=== PATIENT | male | born 1985 | race African-American/Black ===

== ENCOUNTER 2016-09-21 20:03 | Inpatient (IN) | payer OTHER, MEDICAID ==
[~2016-09-21] VITALS: Ht 167.6 cm; Wt 93.0 kg
[~2016-09-21 20:03] MED LIST: PALI234D IM; TRIH2TAB3 PO
[2016-09-21] MEDS ORDERED: TRIHEXYPHENIDYL HCL 2 MG TABLET PO SCH (20:48)
[2016-09-21] MEDS ORDERED: INFLUENZA VIRUS VACCINE QVS 2016-17 (3YR+)/PF 60 MCG/0.5 ML SYRINGE IM ONE (21:00)
[2016-09-21 21:14] VITALS: BP 132/78
[2016-09-21] MEDS: PALIPERIDONE 3 MG ER TABLET PO SCH (22:09)
[2016-09-22 07:17] VITALS: BP 133/85
[2016-09-22 08:13] VITALS: BP 127/66
[2016-09-22] MEDS: TRIHEXYPHENIDYL HCL 2 MG TABLET PO SCH ×3 (08:35→16:55)
[2016-09-22] MEDS: LORazepam 2 MG TABLET PO PRN ×2 (08:35→16:54)
[2016-09-22] MEDS: PALIPERIDONE 3 MG ER TABLET PO SCH ×2 (08:35→20:45)
[2016-09-22 08:54] LABS: BASOPHILS % (AUTO) 0.4 % (0.0-2.0); EOSINOPHILS % (AUTO) 7.2 % (1.0-6.0); HEMATOCRIT 40.5 % (41-53); HEMOGLOBIN 13.1 g/dL (13.5-17.5); LYMPHOCYTES # (AUTO) 2.2 K/uL (1.0-4.8); LYMPHOCYTES % (AUTO) 32.4 % (22.0-44.0); MEAN CORPUSCULAR HEMOGLOBIN 27.4 pg (26.0-34.0); MEAN CORPUSCULAR HGB CONC 32.2 G/dL (31.0-37.0); MEAN CORPUSCULAR VOLUME 85 fL (80-100); MONOCYTES # (AUTO) 0.8 K/uL (0.1-1.0); MONOCYTES % (AUTO) 12.6 % (2.0-9.0); NEUTROPHILS # (AUTO) 3.2 K/uL (1.8-7.7); NEUTROPHILS % (AUTO) 47.4 % (40.0-70.0); PLATELET COUNT (AUTO) 248 K/uL (150-450); RED BLOOD CELL COUNT(AUTO) 4.76 MIL/uL (4.50-5.90); RED CELL DISTRIBUTION WIDTH 14.9 % (11.5-14.5); WHITE BLOOD COUNT (AUTO) 6.7 K/uL (4.5-11.0)
[2016-09-22 09:25] LABS: HEMOGLOBIN A1C 5.6 % (4.5-6.2)
[2016-09-22 09:33] LABS: ALANINE AMINOTRANSFERASE 25 U/L (12-78); ALBUMIN 2.9 g/dL (3.4-5.0); ANION GAP 8 mmol/L (8-16); ASPARTATE AMINOTRANSFERASE 16 U/L (15-37); BILIRUBIN,TOTAL 0.2 mg/dL (0.1-1.0); CALCIUM, TOTAL 8.4 mg/dL (8.8-10.5); CARBON DIOXIDE 28 mmol/L (22-29); CHLORIDE 105 mmol/L (98-107); CHOL/HDL RATIO 2.4 (4.2-7.3); CREATININE 0.65 mg/dL (0.60-1.30); GLOMERULAR FILTR. RATE CALC > 60 mL/min (>60); POTASSIUM 3.6 mmol/L (3.5-5.1); SODIUM SERUM 141 mmol/L (136-145); THYROID STIMULATING HORMONE 0.67 uIU/mL (0.36-3.74); TOTAL PROTEIN, SERUM 6.1 g/dL (6.4-8.2); UREA NITROGEN, BLOOD 7 mg/dL (7-18)
[2016-09-22] MEDS ORDERED: PALIPERIDONE PALMITATE 234 MG/1.5 ML SYRINGE IM SCH (16:00)
[2016-09-22 16:52] VITALS: BP 124/70
[2016-09-22] MEDS: ZOLPIDEM TARTRATE 10 MG TABLET PO PRN (20:45)
[2016-09-23 03:05] VITALS: BP 138/83
[2016-09-23] MEDS: LORazepam 2 MG TABLET PO PRN ×4 (03:07→23:38)
[2016-09-23 08:14] VITALS: BP 130/66
[2016-09-23] MEDS: PALIPERIDONE 3 MG ER TABLET PO SCH (09:36)
[2016-09-23] MEDS: TRIHEXYPHENIDYL HCL 2 MG TABLET PO SCH ×3 (09:36→16:14)
[2016-09-23] MEDS ORDERED: CYANOCOBALAMIN 1,000 MCG/ML VIAL IM ONE (11:30)
[2016-09-23] MEDS ORDERED: MAGNESIUM HYDROXIDE SUSPENSION 30 ML UDCUP PO PRN (11:30)
[2016-09-23] MEDS ORDERED: MAG HYDROX/AL HYDROX/SIMETH ES 30 ML SUSPENSION UDCUP PO PRN (11:30)
[2016-09-23] MEDS ORDERED: ACETAMINOPHEN 325 MG TABLET PO PRN (11:30)
[2016-09-23] MEDS ORDERED: PROMETHAZINE HCL 25 MG TABLET PO PRN (11:30)
[2016-09-23] MEDS ORDERED: HydrOXYzine PAMOATE 50 MG CAPSULE PO PRN (11:30)
[2016-09-23] MEDS: NICOTINE 14 MG/24 HOUR PATCH TD SCH (16:14)
[2016-09-23] MEDS: THIAMINE HCL 100 MG TABLET PO SCH (16:14)
[2016-09-23 16:17] VITALS: BP 116/70
[2016-09-23] MEDS: GuaiFENesin/D-METHORPHAN [SUGAR-FREE] 200-20MG/10 ML SYRUP UDCUP PO PRN (17:49)
[2016-09-23] MEDS ORDERED: PHENYLEPHRINE/SHK LV/MIN OIL/PET 57 GM OINTMENT TP PRN (19:15)
[2016-09-23] MEDS: DIVALPROEX SODIUM 500 MG ER TABLET PO SCH (20:26)
[2016-09-23] MEDS: ZOLPIDEM TARTRATE 10 MG TABLET PO PRN (21:04)
[2016-09-23 23:30] VITALS: BP 131/67
[2016-09-24 06:34] VITALS: BP 125/68
[2016-09-24 08:36] VITALS: BP 120/65
[2016-09-24] MEDS: MULTIVITAMINS WITH MINERALS, THERAPEUTIC TABLET PO SCH (08:44)
[2016-09-24] MEDS: TRIHEXYPHENIDYL HCL 2 MG TABLET PO SCH ×3 (08:44→16:33)
[2016-09-24] MEDS: THIAMINE HCL 100 MG TABLET PO SCH ×2 (08:44→16:32)
[2016-09-24] MEDS: FOLIC ACID 1 MG TABLET PO SCH (08:44)
[2016-09-24] MEDS: NALTREXONE HCL 50 MG TABLET PO SCH (08:44)
[2016-09-24] MEDS: NICOTINE 14 MG/24 HOUR PATCH TD SCH (08:44)
[2016-09-24] MEDS: LORazepam 2 MG TABLET PO PRN ×3 (10:07→21:58)
[2016-09-24 16:00] VITALS: BP 130/62
[2016-09-24] MEDS: DIVALPROEX SODIUM 500 MG ER TABLET PO SCH (21:27)
[2016-09-24] MEDS: ZOLPIDEM TARTRATE 10 MG TABLET PO PRN (21:27)
[2016-09-25 06:07] VITALS: BP 125/71
[2016-09-25 08:12] VITALS: BP 120/68
[2016-09-25] MEDS: NICOTINE 14 MG/24 HOUR PATCH TD SCH (09:43)
[2016-09-25] MEDS: TRIHEXYPHENIDYL HCL 2 MG TABLET PO SCH ×3 (09:44→16:13)
[2016-09-25] MEDS: LORazepam 2 MG TABLET PO PRN ×2 (09:45→16:13)
[2016-09-25] MEDS: NALTREXONE HCL 50 MG TABLET PO SCH (09:45)
[2016-09-25] MEDS: MULTIVITAMINS WITH MINERALS, THERAPEUTIC TABLET PO SCH (09:45)
[2016-09-25] MEDS: THIAMINE HCL 100 MG TABLET PO SCH ×2 (09:45→16:13)
[2016-09-25] MEDS: FOLIC ACID 1 MG TABLET PO SCH (09:45)
[2016-09-25] MEDS: HALOPERIDOL 5 MG TABLET PO PRN (18:27)
[2016-09-25] MEDS: DIVALPROEX SODIUM 500 MG ER TABLET PO SCH (21:07)
[2016-09-25] MEDS: ZOLPIDEM TARTRATE 10 MG TABLET PO PRN (21:15)
[2016-09-26 03:15] VITALS: BP 110/66
[2016-09-26] MEDS: LORazepam 2 MG TABLET PO PRN ×4 (03:19→18:31)
[2016-09-26 08:30] VITALS: BP 135/81
[2016-09-26] MEDS: THIAMINE HCL 100 MG TABLET PO SCH ×2 (08:40→16:23)
[2016-09-26] MEDS: TRIHEXYPHENIDYL HCL 2 MG TABLET PO SCH ×3 (08:40→16:23)
[2016-09-26] MEDS: FOLIC ACID 1 MG TABLET PO SCH (08:40)
[2016-09-26] MEDS: NALTREXONE HCL 50 MG TABLET PO SCH (08:40)
[2016-09-26] MEDS: MULTIVITAMINS WITH MINERALS, THERAPEUTIC TABLET PO SCH (08:40)
[2016-09-26] MEDS: NICOTINE 14 MG/24 HOUR PATCH TD SCH (08:41)
[2016-09-26 16:00] VITALS: BP 130/62
[2016-09-26] MEDS: DIVALPROEX SODIUM 500 MG ER TABLET PO SCH (20:38)
[2016-09-26] MEDS: ZOLPIDEM TARTRATE 10 MG TABLET PO PRN (20:51)
[2016-09-27 06:50] VITALS: BP 118/67
[2016-09-27 08:14] VITALS: BP 112/67
[2016-09-27] MEDS: MULTIVITAMINS WITH MINERALS, THERAPEUTIC TABLET PO SCH (09:10)
[2016-09-27] MEDS: FOLIC ACID 1 MG TABLET PO SCH (09:11)
[2016-09-27] MEDS: NALTREXONE HCL 50 MG TABLET PO SCH (09:11)
[2016-09-27] MEDS: TRIHEXYPHENIDYL HCL 2 MG TABLET PO SCH ×3 (09:11→16:09)
[2016-09-27] MEDS: THIAMINE HCL 100 MG TABLET PO SCH ×2 (09:11→16:09)
[2016-09-27] MEDS: NICOTINE 14 MG/24 HOUR PATCH TD SCH (09:12)
[2016-09-27] MEDS: HALOPERIDOL 5 MG TABLET PO PRN (09:14)
[2016-09-27] MEDS: LORazepam 2 MG TABLET PO PRN ×2 (09:14→14:08)
[2016-09-27 16:00] VITALS: BP 120/60
[2016-09-27] MEDS: GuaiFENesin/D-METHORPHAN [SUGAR-FREE] 200-20MG/10 ML SYRUP UDCUP PO PRN (18:04)
[2016-09-27] MEDS: DIVALPROEX SODIUM 500 MG ER TABLET PO SCH (20:34)
[2016-09-27] MEDS: ZOLPIDEM TARTRATE 10 MG TABLET PO PRN (20:34)
[2016-09-28 04:37] VITALS: BP 122/60
[2016-09-28 06:32] VITALS: BP 140/68
[2016-09-28 08:14] VITALS: BP 116/73
[2016-09-28] MEDS: NICOTINE 14 MG/24 HOUR PATCH TD SCH (09:54)
[2016-09-28] MEDS: MULTIVITAMINS WITH MINERALS, THERAPEUTIC TABLET PO SCH (09:54)
[2016-09-28] MEDS: THIAMINE HCL 100 MG TABLET PO SCH ×2 (09:54→16:23)
[2016-09-28] MEDS: LORazepam 2 MG TABLET PO PRN ×2 (09:55→18:17)
[2016-09-28] MEDS: NALTREXONE HCL 50 MG TABLET PO SCH (09:55)
[2016-09-28] MEDS: FOLIC ACID 1 MG TABLET PO SCH (09:55)
[2016-09-28] MEDS: TRIHEXYPHENIDYL HCL 2 MG TABLET PO SCH ×3 (09:55→16:23)
[2016-09-28] MEDS: HALOPERIDOL 5 MG TABLET PO PRN (10:29)
[2016-09-28] MEDS: DIVALPROEX SODIUM 250 MG ER TABLET PO SCH ×2 (20:20→20:59)
[2016-09-29 08:14] VITALS: BP 120/76
[2016-09-29] MEDS: MULTIVITAMINS WITH MINERALS, THERAPEUTIC TABLET PO SCH (10:16)
[2016-09-29] MEDS: FOLIC ACID 1 MG TABLET PO SCH (10:16)
[2016-09-29] MEDS: THIAMINE HCL 100 MG TABLET PO SCH ×2 (10:17→17:05)
[2016-09-29] MEDS: LORazepam 2 MG TABLET PO PRN ×2 (10:17→13:54)
[2016-09-29] MEDS: NICOTINE 14 MG/24 HOUR PATCH TD SCH (10:17)
[2016-09-29] MEDS: TRIHEXYPHENIDYL HCL 2 MG TABLET PO SCH ×3 (10:17→17:05)
[2016-09-29] MEDS: NALTREXONE HCL 50 MG TABLET PO SCH (10:17)
[2016-09-29 16:07] VITALS: BP 117/68
[2016-09-29] MEDS: DIVALPROEX SODIUM 250 MG ER TABLET PO SCH (20:34)
[2016-09-30] MEDS: ZOLPIDEM TARTRATE 10 MG TABLET PO PRN (00:10)
[2016-09-30 00:11] VITALS: BP 119/72
[2016-09-30] MEDS: LORazepam 2 MG TABLET PO PRN ×2 (03:44→17:27)
[2016-09-30 08:13] VITALS: BP 119/63
[2016-09-30] MEDS: NALTREXONE HCL 50 MG TABLET PO SCH (09:25)
[2016-09-30] MEDS: FOLIC ACID 1 MG TABLET PO SCH (09:25)
[2016-09-30] MEDS: THIAMINE HCL 100 MG TABLET PO SCH ×2 (09:25→17:27)
[2016-09-30] MEDS: MULTIVITAMINS WITH MINERALS, THERAPEUTIC TABLET PO SCH (09:26)
[2016-09-30] MEDS: TRIHEXYPHENIDYL HCL 2 MG TABLET PO SCH ×3 (09:26→17:27)
[2016-09-30] MEDS: NICOTINE 14 MG/24 HOUR PATCH TD SCH (09:26)
[2016-09-30] MEDS ORDERED: PALI234D IM (14:34)
[2016-09-30] MEDS ORDERED: NALT50 PO (14:34)
[2016-09-30] MEDS ORDERED: TRIH2TAB3 PO (14:34)
[2016-09-30 16:13] VITALS: BP 107/66
[2016-10-01 01:50] VITALS: BP 124/72
[2016-10-01] MEDS: LORazepam 2 MG TABLET PO PRN ×2 (01:54→09:01)
[2016-10-01 08:03] VITALS: BP 126/74
[2016-10-01] MEDS: NALTREXONE HCL 50 MG TABLET PO SCH (08:16)
[2016-10-01] MEDS: MULTIVITAMINS WITH MINERALS, THERAPEUTIC TABLET PO SCH (08:16)
[2016-10-01] MEDS: NICOTINE 14 MG/24 HOUR PATCH TD SCH (08:16)
[2016-10-01] MEDS: THIAMINE HCL 100 MG TABLET PO SCH (08:16)
[2016-10-01] MEDS: FOLIC ACID 1 MG TABLET PO SCH (08:17)
[2016-10-01] MEDS: TRIHEXYPHENIDYL HCL 2 MG TABLET PO SCH ×2 (08:17→13:01)
[2016-10-01] MEDS ORDERED: NALT50TA PO (08:36)
== END 2016-10-01 13:35 | disposition home or self-care (01) | DRG 885 ==
LOC: B3A 20:38 → EDSTATUS 20:45 → B3A 09-30 20:30
PROVIDERS: ATTEND Psychiatry & Neurology Psychiatry
DX: F20.0 Paranoid schizophrenia (principal); R45.851 Suicidal ideations; F17.210 Nicotine dependence, cigarettes, uncomplicated; I10 Essential (primary) hypertension; J45.909 Unspecified asthma, uncomplicated; K21.9 Gastro-esophageal reflux disease without esophagitis; B19.20 Unspecified viral hepatitis C without hepatic coma; D64.9 Anemia, unspecified; F79 Unspecified intellectual disabilities; F15.90 Other stimulant use, unspecified, uncomplicated; R45.850 Homicidal ideations; F25.9 Schizoaffective disorder, unspecified; Z59.0 Homelessness; Z91.19 Patient's noncompliance with other medical treatment and regimen; Z72.89 Other problems related to lifestyle; Z28.21 Immunization not carried out because of patient refusal; Z81.8 Family history of other mental and behavioral disorders
CPT/HCPCS: 83036; 84439; 84443; 87081; J3420

== ENCOUNTER 2016-10-10 20:46 | Inpatient (IN) | payer OTHER, MEDICAID ==
[~2016-10-10] VITALS: Ht 167.6 cm; Wt 92.2 kg
[~2016-10-10 20:46] MED LIST changes: +NALT50 PO; +NALT50TA PO
[2016-10-11] MEDS ORDERED: ZOLPIDEM TARTRATE 10 MG TABLET PO PRN (03:00)
[2016-10-11] MEDS ORDERED: OLANZapine 5 MG RAPDIS TABLET PO PRN (03:00)
[2016-10-11 03:50] VITALS: BP 135/61
[2016-10-11] MEDS ORDERED: -PHARMACY VACCINE NOTE- MISC ONE ×2 (05:15)
[2016-10-11] MEDS ORDERED: INFLUENZA VIRUS VACCINE QVS 2016-17 (3YR+)/PF 60 MCG/0.5 ML SYRINGE IM ONE (05:15)
[2016-10-11 08:12] VITALS: BP 112/68
[2016-10-11] MEDS: LORazepam 1 MG TABLET PO PRN ×2 (08:33→16:37)
[2016-10-11] MEDS: FOLIC ACID 1 MG TABLET PO SCH (08:33)
[2016-10-11] MEDS: THIAMINE HCL 100 MG TABLET PO SCH ×2 (08:33→16:37)
[2016-10-11] MEDS: MULTIVITAMINS WITH MINERALS, THERAPEUTIC TABLET PO SCH (08:33)
[2016-10-11 08:47] LABS: APPEARANCE,URINE CLOUDY (CLEAR); GLUCOSE, URINE (UA) NEGATIVE (NEGATIVE); KETONES,URINE TRACE mg/dL (NEGATIVE); LEUKOCYTE ESTERASE ,URINE NEGATIVE (NEGATIVE); OCCULT BLOOD,URINE NEGATIVE (NEGATIVE); PROTEIN,URINE NEGATIVE (NEGATIVE)
[2016-10-11 08:48] LABS: ADD UA MICROSCOPIC YES
[2016-10-11 08:50] LABS: RBC,URINE None Seen /HPF (0-2); RENAL EPITHELIAL CELLS,URINE Few /LPF (None Seen); WBC,URINE 0-2 /HPF (0-5)
[2016-10-11] MEDS ORDERED: MAG HYDROX/AL HYDROX/SIMETH ES 30 ML SUSPENSION UDCUP PO PRN (13:00)
[2016-10-11] MEDS ORDERED: PALIPERIDONE PALMITATE 234 MG/1.5 ML SYRINGE IM ONE (13:00)
[2016-10-11] MEDS ORDERED: ACETAMINOPHEN 325 MG TABLET PO PRN (13:00)
[2016-10-11] MEDS ORDERED: LOPERAMIDE HCL 2 MG CAPSULE PO PRN (13:00)
[2016-10-11] MEDS ORDERED: PROMETHAZINE HCL 25 MG TABLET PO PRN (13:00)
[2016-10-11] MEDS ORDERED: MAGNESIUM HYDROXIDE SUSPENSION 30 ML UDCUP PO PRN (13:00)
[2016-10-11] MEDS ORDERED: PALIPERIDONE 3 MG ER TABLET PO PRN (13:00)
[2016-10-11 16:13] VITALS: BP 114/61
[2016-10-11] MEDS: TRIHEXYPHENIDYL HCL 2 MG TABLET PO SCH (16:37)
[2016-10-11] MEDS: PALIPERIDONE 3 MG ER TABLET PO SCH (20:44)
[2016-10-12 06:26] VITALS: BP 112/65
[2016-10-12 08:29] VITALS: BP 108/74
[2016-10-12 08:33] LABS: HEMOGLOBIN A1C 5.4 % (4.5-6.2)
[2016-10-12] MEDS: TRIHEXYPHENIDYL HCL 2 MG TABLET PO SCH ×2 (08:49→16:59)
[2016-10-12] MEDS: NALTREXONE HCL 50 MG TABLET PO SCH (08:50)
[2016-10-12] MEDS: FOLIC ACID 1 MG TABLET PO SCH (08:50)
[2016-10-12] MEDS: MULTIVITAMINS WITH MINERALS, THERAPEUTIC TABLET PO SCH (08:50)
[2016-10-12] MEDS: THIAMINE HCL 100 MG TABLET PO SCH ×2 (08:50→16:59)
[2016-10-12 09:33] LABS: ALANINE AMINOTRANSFERASE 16 U/L (12-78); ANION GAP 8 mmol/L (8-16); ASPARTATE AMINOTRANSFERASE 10 U/L (15-37); BILIRUBIN,TOTAL 0.5 mg/dL (0.1-1.0); CALCIUM, TOTAL 8.5 mg/dL (8.8-10.5); CARBON DIOXIDE 27 mmol/L (22-29); CHLORIDE 108 mmol/L (98-107); CHOL/HDL RATIO 2.6 (4.2-7.3); CREATININE 0.74 mg/dL (0.60-1.30); GLOMERULAR FILTR. RATE CALC > 60 mL/min (>60); POTASSIUM 3.8 mmol/L (3.5-5.1); SODIUM SERUM 143 mmol/L (136-145); THYROID STIMULATING HORMONE 0.18 uIU/mL (0.36-3.74); UREA NITROGEN, BLOOD 6 mg/dL (7-18)
[2016-10-12] MEDS: LORazepam 1 MG TABLET PO PRN (17:10)
[2016-10-12 17:48] VITALS: BP 114/54
[2016-10-12] MEDS: PALIPERIDONE 3 MG ER TABLET PO SCH (20:28)
[2016-10-13 06:33] VITALS: BP 103/58
[2016-10-13 07:59] LABS: BASOPHILS # (AUTO) 0.03 K/uL (0.00-0.20); BASOPHILS % (AUTO) 0.5 % (0.0-2.0); EOSINOPHILS # (AUTO) 0.52 K/uL (0.00-0.70); EOSINOPHILS % (AUTO) 8.09 % (1.0-6.0); HEMATOCRIT 40.5 % (41-53); HEMOGLOBIN 13.4 g/dL (13.5-17.5); LYMPHOCYTES # (AUTO) 2.4 K/uL (1.0-4.8); MEAN CORPUSCULAR HEMOGLOBIN 27.7 pg (26.0-34.0); MEAN CORPUSCULAR VOLUME 84 fL (80-100); MONOCYTES # (AUTO) 0.7 K/uL (0.1-1.0); MONOCYTES % (AUTO) 10.4 % (2.0-9.0); NEUTROPHILS # (AUTO) 2.8 K/uL (1.8-7.7); PLATELET COUNT (AUTO) 202 K/uL (150-450); RED BLOOD CELL COUNT(AUTO) 4.83 MIL/uL (4.50-5.90); RED CELL DISTRIBUTION WIDTH 15.1 % (11.5-14.5); WHITE BLOOD COUNT (AUTO) 6.4 K/uL (4.5-11.0)
[2016-10-13 08:28] VITALS: BP 105/58
[2016-10-13 08:32] LABS: ALANINE AMINOTRANSFERASE 17 U/L (12-78); ANION GAP 6 mmol/L (8-16); ASPARTATE AMINOTRANSFERASE 8 U/L (15-37); BILIRUBIN,TOTAL 0.4 mg/dL (0.1-1.0); CALCIUM, TOTAL 8.1 mg/dL (8.8-10.5); CARBON DIOXIDE 29 mmol/L (22-29); CHLORIDE 107 mmol/L (98-107); CREATININE 0.87 mg/dL (0.60-1.30); GLOMERULAR FILTR. RATE CALC > 60 mL/min (>60); POTASSIUM 3.8 mmol/L (3.5-5.1); SODIUM SERUM 142 mmol/L (136-145); UREA NITROGEN, BLOOD 7 mg/dL (7-18)
[2016-10-13] MEDS: FOLIC ACID 1 MG TABLET PO SCH (09:24)
[2016-10-13] MEDS: TRIHEXYPHENIDYL HCL 2 MG TABLET PO SCH ×2 (09:24→17:00)
[2016-10-13] MEDS: MULTIVITAMINS WITH MINERALS, THERAPEUTIC TABLET PO SCH (09:24)
[2016-10-13] MEDS: THIAMINE HCL 100 MG TABLET PO SCH ×2 (09:25→17:00)
[2016-10-13] MEDS: NALTREXONE HCL 50 MG TABLET PO SCH (09:59)
[2016-10-13 16:08] VITALS: BP 135/67
[2016-10-13] MEDS ORDERED: PALIPERIDONE 3 MG ER TABLET PO SCH (21:00)
[2016-10-14] VITALS: BP 111/70
[2016-10-14 08:26] VITALS: BP 110/59
[2016-10-14] MEDS: MULTIVITAMINS WITH MINERALS, THERAPEUTIC TABLET PO SCH (08:48)
[2016-10-14] MEDS: FOLIC ACID 1 MG TABLET PO SCH (08:48)
[2016-10-14] MEDS: THIAMINE HCL 100 MG TABLET PO SCH ×2 (08:49→16:28)
[2016-10-14] MEDS: NALTREXONE HCL 50 MG TABLET PO SCH (08:49)
[2016-10-14] MEDS: TRIHEXYPHENIDYL HCL 2 MG TABLET PO SCH ×2 (08:49→16:28)
[2016-10-14] MEDS ORDERED: NALT50 PO (12:53)
[2016-10-14] MEDS ORDERED: TRIH2TAB3 PO (12:53)
[2016-10-14] MEDS ORDERED: PALI234D IM (12:53)
[2016-10-14 16:29] VITALS: BP 112/80
[2016-10-14] MEDS: LORazepam 1 MG TABLET PO PRN (16:29)
[2016-10-15 06:17] VITALS: BP 121/68
[2016-10-15 08:00] VITALS: BP 110/69
[2016-10-15] MEDS: NALTREXONE HCL 50 MG TABLET PO SCH (09:54)
[2016-10-15] MEDS: FOLIC ACID 1 MG TABLET PO SCH (09:54)
[2016-10-15] MEDS: TRIHEXYPHENIDYL HCL 2 MG TABLET PO SCH (09:54)
[2016-10-15] MEDS: THIAMINE HCL 100 MG TABLET PO SCH (09:54)
[2016-10-15] MEDS: MULTIVITAMINS WITH MINERALS, THERAPEUTIC TABLET PO SCH (09:54)
[2016-11-08] MEDS ORDERED: PALIPERIDONE PALMITATE 234 MG/1.5 ML SYRINGE IM SCH (09:00)
== END 2016-10-15 16:16 | disposition home or self-care (01) | DRG 885 ==
LOC: B3A 10-11 02:56 → B2S 10-12 08:56
PROVIDERS: ADMIT Psychiatry & Neurology Psychiatry; ATTEND Psychiatry & Neurology Psychiatry
PROC: GZ51ZZZ Individual Psychotherapy, Behavioral (ICD-10-PCS; principal; 2016-10-11)
DX: F25.9 Schizoaffective disorder, unspecified (principal); F17.210 Nicotine dependence, cigarettes, uncomplicated; K21.9 Gastro-esophageal reflux disease without esophagitis; I10 Essential (primary) hypertension; D64.9 Anemia, unspecified; Z28.21 Immunization not carried out because of patient refusal; Z79.899 Other long term (current) drug therapy; Z91.19 Patient's noncompliance with other medical treatment and regimen
CPT/HCPCS: 80307; 83036; 84439; 84443; 86592; 87081

== ENCOUNTER 2017-02-24 02:21 | Emergency (ER) | payer OTHER, MEDICAID ==
[~2017-02-24] VITALS: Ht 172.7 cm; Wt 75.9 kg
[~2017-02-24 02:21] MED LIST changes: -NALT50TA PO; +PALI156D IM; +TRIH5TAB2 PO
[2017-02-24 06:07] VITALS: BP 131/72
[2017-02-24] MEDS ORDERED: BENZTROPINE MESYLATE 1 MG TABLET PO ONE (06:30)
[2017-02-24] MEDS ORDERED: HALOPERIDOL 5 MG TABLET PO ONE (06:30)
== END 2017-02-24 06:43 | disposition home or self-care (01) ==
LOC: EMS 02:23
DX: Z76.0 Encounter for issue of repeat prescription (principal); I10 Essential (primary) hypertension
CPT/HCPCS: 99283

== ENCOUNTER 2017-05-30 16:59 | Emergency (ER) | payer MEDICARE ==
[~2017-05-30] VITALS: Ht 167.6 cm; Wt 79.0 kg
[~2017-05-30 16:59] MED LIST changes: -NALT50 PO; +NALT50TA6 PO; -PALI156D IM; +PALI6 PO; -TRIH5TAB2 PO
[2017-05-30] MEDS ORDERED: BENZ0.5T6 PO (17:09)
[2017-05-30 17:38] LABS: BASOPHILS # (AUTO) 0.04 K/uL (0.00-0.20); BASOPHILS % (AUTO) 0.7 % (0.0-2.0); EOSINOPHILS # (AUTO) 0.17 K/uL (0.00-0.70); EOSINOPHILS % (AUTO) 2.91 % (1.0-6.0); HEMOGLOBIN 14.3 g/dL (13.5-17.5); LYMPHOCYTES # (AUTO) 2.5 K/uL (1.0-4.8); LYMPHOCYTES % (AUTO) 42.4 % (22.0-44.0); MEAN CORPUSCULAR HEMOGLOBIN 27.6 pg (26.0-34.0); MEAN CORPUSCULAR HGB CONC 32.5 G/dL (31.0-37.0); MEAN CORPUSCULAR VOLUME 85 fL (80-100); MONOCYTES # (AUTO) 0.7 K/uL (0.1-1.0); MONOCYTES % (AUTO) 12.3 % (2.0-9.0); NEUTROPHILS # (AUTO) 2.5 K/uL (1.8-7.7); NEUTROPHILS % (AUTO) 41.8 % (40.0-70.0); PLATELET COUNT (AUTO) 214 K/uL (150-450); RED BLOOD CELL COUNT(AUTO) 5.19 MIL/uL (4.50-5.90); RED CELL DISTRIBUTION WIDTH 14.4 % (11.5-14.5)
[2017-05-30 17:47] LABS: ANION GAP 10 mmol/L (8-16); CALCIUM, TOTAL 9.3 mg/dL (8.8-10.5); CARBON DIOXIDE 28 mmol/L (22-29); CHLORIDE 108 mmol/L (98-107); CREATININE 1.02 mg/dL (0.60-1.30); GLOMERULAR FILTR. RATE CALC > 60 mL/min (>60); POTASSIUM 3.9 mmol/L (3.5-5.1); SODIUM SERUM 146 mmol/L (136-145); UREA NITROGEN, BLOOD 13 mg/dL (7-18)
[2017-05-30 17:53] LABS: ALANINE AMINOTRANSFERASE 22 U/L (12-78); ALBUMIN 4.2 g/dL (3.4-5.0); ASPARTATE AMINOTRANSFERASE 12 U/L (15-37); BILIRUBIN,TOTAL 0.7 mg/dL (0.1-1.0); TOTAL PROTEIN, SERUM 7.3 g/dL (6.4-8.2)
[2017-05-30 20:46] VITALS: BP 127/79
== END 2017-05-30 20:52 | disposition home or self-care (01) ==
LOC: EMS 17:02
DX: F15.129 Other stimulant abuse with intoxication, unspecified (principal); F12.10 Cannabis abuse, uncomplicated; F11.10 Opioid abuse, uncomplicated; F20.9 Schizophrenia, unspecified; F90.9 Attention-deficit hyperactivity disorder, unspecified type; I10 Essential (primary) hypertension; K75.9 Inflammatory liver disease, unspecified
CPT/HCPCS: 36415; 80053; 80307; 85025; 99284; G0480

== ENCOUNTER 2017-08-02 01:20 | Inpatient (IN) | payer MEDICARE ==
[~2017-08-02] VITALS: Ht 167.6 cm; Wt 70.4 kg
[2017-08-02] VITALS (8 sets, daily range): BP systolic 113–133; BP diastolic 58–75
[~2017-08-02 01:20] MED LIST changes: +BENZ0.5T6 PO; -NALT50TA6 PO; -PALI234D IM; -PALI6 PO; -TRIH2TAB3 PO
[2017-08-02] MEDS ORDERED: ZOLPIDEM TARTRATE 10 MG TABLET PO PRN (03:30)
[2017-08-02] MEDS ORDERED: LORazepam 2 MG TABLET PO PRN ×2 (03:30→09:45)
[2017-08-02] MEDS ORDERED: HALOPERIDOL 5 MG TABLET PO PRN (03:30)
[2017-08-02] MEDS ORDERED: INFLUENZA VIRUS VACCINE QVS 2017-18 (3YR+)/PF 60 MCG/0.5 ML SYRINGE IM ONE (04:15)
[2017-08-02] MEDS ORDERED: -PHARMACY VACCINE NOTE- MISC ONE ×2 (04:15)
[2017-08-02] MEDS ORDERED: PALI156D IM (04:53)
[2017-08-02] MEDS ORDERED: TRIH2TAB3 PO (04:53)
[2017-08-02] MEDS ORDERED: NALT50TA6 PO (04:53)
[2017-08-02] MEDS ORDERED: PALI6 PO (04:53)
[2017-08-02] MEDS: NICOTINE 21 MG/24 HOUR PATCH TD SCH (08:47)
[2017-08-02] MEDS ORDERED: NALTREXONE HCL 50 MG TABLET PO ONE (09:45)
[2017-08-02] MEDS ORDERED: PROMETHAZINE HCL 25 MG TABLET PO PRN (09:45)
[2017-08-02] MEDS ORDERED: PALIPERIDONE PALMITATE 234 MG/1.5 ML SYRINGE IM ONE (09:45)
[2017-08-02] MEDS ORDERED: DIAZEPAM 10 MG TABLET PO PRN (09:45)
[2017-08-02] MEDS ORDERED: PALIPERIDONE 3 MG ER TABLET PO PRN (09:45)
[2017-08-02] MEDS: TRIHEXYPHENIDYL HCL 2 MG TABLET PO SCH ×2 (12:06→16:32)
[2017-08-02] MEDS: THIAMINE HCL 100 MG TABLET PO SCH (16:32)
[2017-08-02] MEDS ORDERED: PALIPERIDONE 3 MG ER TABLET PO SCH (21:00)
[2017-08-02] MEDS ORDERED: ALBUTEROL SULFATE HFA 90 MCG/PUFF 8 GM INHALER IH PRN (22:00)
[2017-08-02] MEDS ORDERED: ACETAMINOPHEN 325 MG TABLET PO PRN (22:00)
[2017-08-02] MEDS ORDERED: IBUPROFEN 400 MG TABLET PO PRN (22:00)
[2017-08-03 04:30] VITALS: BP 119/75
[2017-08-03] MEDS ORDERED: LORazepam 2 MG TABLET PO PRN (07:00)
[2017-08-03 08:03] LABS: BASOPHILS % (AUTO) 0.3 % (0.0-2.0); HEMATOCRIT 41.2 % (41-53); HEMOGLOBIN 13.6 g/dL (13.5-17.5); LYMPHOCYTES # (AUTO) 1.2 K/uL (1.0-4.8); LYMPHOCYTES % (AUTO) 17.5 % (22.0-44.0); MEAN CORPUSCULAR HGB CONC 32.9 G/dL (31.0-37.0); MEAN CORPUSCULAR VOLUME 85 fL (80-100); MONOCYTES # (AUTO) 0.9 K/uL (0.1-1.0); MONOCYTES % (AUTO) 12.5 % (2.0-9.0); NEUTROPHILS # (AUTO) 4.5 K/uL (1.8-7.7); NEUTROPHILS % (AUTO) 62.7 % (40.0-70.0); PLATELET COUNT (AUTO) 200 K/uL (150-450); RED BLOOD CELL COUNT(AUTO) 4.85 MIL/uL (4.50-5.90); RED CELL DISTRIBUTION WIDTH 15.3 % (11.5-14.5); WHITE BLOOD COUNT (AUTO) 7.1 K/uL (4.5-11.0)
[2017-08-03 08:25] VITALS: BP 139/59
[2017-08-03 08:26] LABS: HEMOGLOBIN A1C 5.3 % (4.5-6.2)
[2017-08-03 08:30] VITALS: BP 139/59
[2017-08-03] MEDS: THIAMINE HCL 100 MG TABLET PO SCH ×2 (08:35→16:40)
[2017-08-03] MEDS: MULTIVITAMINS WITH MINERALS, THERAPEUTIC TABLET PO SCH (08:35)
[2017-08-03] MEDS: TRIHEXYPHENIDYL HCL 2 MG TABLET PO SCH ×3 (08:36→16:40)
[2017-08-03] MEDS: NICOTINE 21 MG/24 HOUR PATCH TD SCH (08:36)
[2017-08-03] MEDS: FOLIC ACID 1 MG TABLET PO SCH (08:36)
[2017-08-03] MEDS: DIAZEPAM 10 MG TABLET PO SCH ×4 (08:36→20:33)
[2017-08-03 08:40] LABS: ALANINE AMINOTRANSFERASE 22 U/L (12-78); ALBUMIN 3.2 g/dL (3.4-5.0); ANION GAP 7 mmol/L (8-16); ASPARTATE AMINOTRANSFERASE 16 U/L (15-37); BILIRUBIN,TOTAL 0.6 mg/dL (0.1-1.0); CALCIUM, TOTAL 8.7 mg/dL (8.8-10.5); CARBON DIOXIDE 27 mmol/L (22-29); CHLORIDE 105 mmol/L (98-107); CHOL/HDL RATIO 2.5 (4.2-7.3); CREATININE 0.72 mg/dL (0.60-1.30); GLOMERULAR FILTR. RATE CALC > 60 mL/min (>60); POTASSIUM 4.1 mmol/L (3.5-5.1); SODIUM SERUM 139 mmol/L (136-145); THYROID STIMULATING HORMONE 0.86 uIU/mL (0.36-3.74); UREA NITROGEN, BLOOD 14 mg/dL (7-18)
[2017-08-03] MEDS ORDERED: LORazepam 2 MG TABLET PO SCH (09:00)
[2017-08-03 12:30] VITALS: BP 118/60
[2017-08-03 16:06] VITALS: BP 119/68
[2017-08-03 20:30] VITALS: BP 107/64
[2017-08-04 01:30] VITALS: BP 112/64
[2017-08-04] MEDS: DIAZEPAM 10 MG TABLET PO PRN (01:42)
[2017-08-04] MEDS: GuaiFENesin/D-METHORPHAN [SUGAR-FREE] 200-20MG/10 ML SYRUP UDCUP PO PRN (01:42)
[2017-08-04 04:35] VITALS: BP 110/68
[2017-08-04 08:11] VITALS: BP 115/67
[2017-08-04] MEDS: FOLIC ACID 1 MG TABLET PO SCH (08:41)
[2017-08-04] MEDS: DIAZEPAM 10 MG TABLET PO SCH ×4 (08:41→20:39)
[2017-08-04] MEDS: THIAMINE HCL 100 MG TABLET PO SCH ×2 (08:41→16:37)
[2017-08-04] MEDS: MULTIVITAMINS WITH MINERALS, THERAPEUTIC TABLET PO SCH (08:41)
[2017-08-04] MEDS: TRIHEXYPHENIDYL HCL 2 MG TABLET PO SCH ×3 (08:41→16:38)
[2017-08-04] MEDS: NICOTINE 21 MG/24 HOUR PATCH TD SCH (08:42)
[2017-08-04 12:45] VITALS: BP_SYST 110; BP_DIAS 60; BP_DIAS 62
[2017-08-04 16:06] VITALS: BP 118/72
[2017-08-04 20:35] VITALS: BP 124/66
[2017-08-05 00:58] VITALS: BP 107/61
[2017-08-05 04:35] VITALS: BP 120/72
[2017-08-05] MEDS: GuaiFENesin/D-METHORPHAN [SUGAR-FREE] 200-20MG/10 ML SYRUP UDCUP PO PRN ×2 (05:28→19:36)
[2017-08-05] MEDS: DIAZEPAM 10 MG TABLET PO PRN (05:28)
[2017-08-05] MEDS: ACETAMINOPHEN 325 MG TABLET PO PRN (05:29)
[2017-08-05] MEDS ORDERED: DIAZEPAM 5 MG TABLET PO PRN (07:00)
[2017-08-05] MEDS ORDERED: LORazepam 1 MG TABLET PO PRN (07:00)
[2017-08-05] MEDS: THIAMINE HCL 100 MG TABLET PO SCH ×2 (08:24→16:28)
[2017-08-05] MEDS: MULTIVITAMINS WITH MINERALS, THERAPEUTIC TABLET PO SCH (08:24)
[2017-08-05] MEDS: FOLIC ACID 1 MG TABLET PO SCH (08:24)
[2017-08-05] MEDS: TRIHEXYPHENIDYL HCL 2 MG TABLET PO SCH ×3 (08:24→16:28)
[2017-08-05] MEDS: DIAZEPAM 5 MG TABLET PO SCH ×4 (08:24→20:35)
[2017-08-05] MEDS: NICOTINE 21 MG/24 HOUR PATCH TD SCH (08:25)
[2017-08-05 08:44] VITALS: BP 113/64
[2017-08-05] MEDS ORDERED: LORazepam 1 MG TABLET PO SCH (09:00)
[2017-08-05 12:30] VITALS: BP 124/60
[2017-08-05 16:00] VITALS: BP 122/77
[2017-08-05 20:30] VITALS: BP 122/76
[2017-08-06] MEDS ORDERED: LORazepam 1 MG TABLET PO PRN (07:00)
[2017-08-06 08:11] VITALS: BP 124/74
[2017-08-06] MEDS: TRIHEXYPHENIDYL HCL 2 MG TABLET PO SCH ×3 (09:03→16:17)
[2017-08-06] MEDS: FOLIC ACID 1 MG TABLET PO SCH (09:03)
[2017-08-06] MEDS: THIAMINE HCL 100 MG TABLET PO SCH ×2 (09:03→16:17)
[2017-08-06] MEDS: MULTIVITAMINS WITH MINERALS, THERAPEUTIC TABLET PO SCH (09:03)
[2017-08-06] MEDS: NICOTINE 21 MG/24 HOUR PATCH TD SCH (09:04)
[2017-08-06 13:12] VITALS: BP 112/65
[2017-08-06] MEDS: DIAZEPAM 5 MG TABLET PO PRN ×2 (13:29→18:38)
[2017-08-06 16:00] VITALS: BP 118/71
[2017-08-06] MEDS: GuaiFENesin/D-METHORPHAN [SUGAR-FREE] 200-20MG/10 ML SYRUP UDCUP PO PRN (18:37)
[2017-08-06 20:30] VITALS: BP 112/65
[2017-08-07 05:57] VITALS: BP 112/71
[2017-08-07] MEDS: DIAZEPAM 5 MG TABLET PO PRN (06:04)
[2017-08-07 08:21] VITALS: BP 120/60
[2017-08-07] MEDS: FOLIC ACID 1 MG TABLET PO SCH (08:56)
[2017-08-07] MEDS: THIAMINE HCL 100 MG TABLET PO SCH ×2 (08:56→16:39)
[2017-08-07] MEDS: MULTIVITAMINS WITH MINERALS, THERAPEUTIC TABLET PO SCH (08:56)
[2017-08-07] MEDS: TRIHEXYPHENIDYL HCL 2 MG TABLET PO SCH ×3 (08:56→16:39)
[2017-08-07] MEDS: NICOTINE 21 MG/24 HOUR PATCH TD SCH (08:56)
[2017-08-07 19:50] VITALS: BP 128/76
[2017-08-07] MEDS: LORazepam 2 MG TABLET PO PRN (19:53)
[2017-08-07] MEDS: ACETAMINOPHEN 325 MG TABLET PO PRN (21:46)
[2017-08-07] MEDS: GuaiFENesin/D-METHORPHAN [SUGAR-FREE] 200-20MG/10 ML SYRUP UDCUP PO PRN (21:48)
[2017-08-08 01:42] VITALS: BP 103/61
[2017-08-08] MEDS: LORazepam 2 MG TABLET PO PRN ×3 (06:06→18:41)
[2017-08-08 08:30] VITALS: BP 125/70
[2017-08-08] MEDS: THIAMINE HCL 100 MG TABLET PO SCH ×2 (08:40→16:39)
[2017-08-08] MEDS: NICOTINE 21 MG/24 HOUR PATCH TD SCH (08:40)
[2017-08-08] MEDS: TRIHEXYPHENIDYL HCL 2 MG TABLET PO SCH ×3 (08:40→16:38)
[2017-08-08] MEDS: FOLIC ACID 1 MG TABLET PO SCH (08:40)
[2017-08-08] MEDS: MULTIVITAMINS WITH MINERALS, THERAPEUTIC TABLET PO SCH (08:40)
[2017-08-08 16:20] VITALS: BP 120/61
[2017-08-08] MEDS: GuaiFENesin/D-METHORPHAN [SUGAR-FREE] 200-20MG/10 ML SYRUP UDCUP PO PRN (20:27)
[2017-08-08] MEDS: ACETAMINOPHEN 325 MG TABLET PO PRN (22:08)
[2017-08-09 01:29] VITALS: BP 107/70
[2017-08-09] MEDS: LORazepam 2 MG TABLET PO PRN (07:02)
[2017-08-09] MEDS ORDERED: LORazepam 2 MG/ML VIAL IM ONE (07:15)
[2017-08-09] MEDS ORDERED: HALOPERIDOL LACTATE 5 MG/ML VIAL IM ONE (07:15)
[2017-08-09] MEDS ORDERED: DiphenhydrAMINE HCL 50 MG/ML VIAL IM ONE (07:15)
[2017-08-30] MEDS ORDERED: PALIPERIDONE PALMITATE 234 MG/1.5 ML SYRINGE IM SCH (09:00)
== END 2017-08-09 07:30 | DRG 885 ==
LOC: B2X 03:29 → EDSTATUS 03:49
PROVIDERS: ADMIT Psychiatry & Neurology Psychiatry; ATTEND Psychiatry & Neurology Psychiatry
PROC: 3E0234Z Introduction of Serum, Toxoid and Vaccine into Muscle, Percutaneous Approach (ICD-10-PCS; principal; 2017-08-02)
DX: F31.5 Bipolar disorder, current episode depressed, severe, with psychotic features (principal); R45.851 Suicidal ideations; Z91.19 Patient's noncompliance with other medical treatment and regimen; D64.9 Anemia, unspecified; F17.210 Nicotine dependence, cigarettes, uncomplicated; F90.9 Attention-deficit hyperactivity disorder, unspecified type; I10 Essential (primary) hypertension; J44.9 Chronic obstructive pulmonary disease, unspecified; K59.00 Constipation, unspecified; Z23 Encounter for immunization
CPT/HCPCS: 83036; 84443; 87081; 90471; 99285; J1200; J1630; J2060

== ENCOUNTER 2017-08-09 08:56 | Inpatient (IN) | payer MEDICARE ==
[~2017-08-09] VITALS: Ht 167.6 cm; Wt 73.7 kg
[~2017-08-09 08:56] MED LIST changes: -BENZ0.5T6 PO; +NALT50TA6 PO; +PALI156D IM; +PALI6 PO; +TRIH2TAB3 PO
[2017-08-09] MEDS ORDERED: PALIPERIDONE 3 MG ER TABLET PO PRN (09:15)
[2017-08-09] MEDS: LORazepam 2 MG TABLET PO PRN ×3 (10:57→20:52)
[2017-08-09] MEDS: NICOTINE 21 MG/24 HOUR PATCH TD SCH (12:32)
[2017-08-09] MEDS: TRIHEXYPHENIDYL HCL 2 MG TABLET PO SCH ×2 (12:33→16:36)
[2017-08-09] MEDS ORDERED: MAG HYDROX/AL HYDROX/SIMETH ES 30 ML SUSPENSION UDCUP PO PRN (14:30)
[2017-08-09] MEDS ORDERED: ACETAMINOPHEN 325 MG TABLET PO PRN (14:30)
[2017-08-09] MEDS ORDERED: LOPERAMIDE HCL 2 MG CAPSULE PO PRN (14:30)
[2017-08-09] MEDS ORDERED: CYANOCOBALAMIN 1,000 MCG/ML VIAL IM ONE (14:30)
[2017-08-09] MEDS ORDERED: PROMETHAZINE HCL 25 MG TABLET PO PRN (14:30)
[2017-08-09] MEDS ORDERED: MAGNESIUM HYDROXIDE SUSPENSION 30 ML UDCUP PO PRN (14:30)
[2017-08-09] MEDS: THIAMINE HCL 100 MG TABLET PO SCH (16:36)
[2017-08-09] MEDS: HALOPERIDOL 5 MG TABLET PO PRN (16:36)
[2017-08-09 17:19] VITALS: BP 112/68
[2017-08-09] MEDS ORDERED: HALOPERIDOL 10 MG TABLET PO SCH (21:00)
[2017-08-10] MEDS: LORazepam 2 MG TABLET PO PRN ×4 (02:02→17:59)
[2017-08-10 06:42] VITALS: BP 103/66
[2017-08-10 08:23] VITALS: BP 130/70
[2017-08-10] MEDS: TRIHEXYPHENIDYL HCL 2 MG TABLET PO SCH ×3 (09:12→16:47)
[2017-08-10] MEDS: MULTIVITAMINS WITH MINERALS, THERAPEUTIC TABLET PO SCH (09:12)
[2017-08-10] MEDS: THIAMINE HCL 100 MG TABLET PO SCH ×2 (09:12→16:47)
[2017-08-10] MEDS: NALTREXONE HCL 50 MG TABLET PO SCH (09:12)
[2017-08-10] MEDS: NICOTINE 21 MG/24 HOUR PATCH TD SCH (09:12)
[2017-08-10] MEDS: FOLIC ACID 1 MG TABLET PO SCH (09:12)
[2017-08-10 16:14] VITALS: BP 116/65
[2017-08-10] MEDS: HALOPERIDOL 10 MG TABLET PO SCH (20:09)
[2017-08-10] MEDS: ZOLPIDEM TARTRATE 10 MG TABLET PO PRN (20:09)
[2017-08-10] MEDS: GuaiFENesin/D-METHORPHAN [SUGAR-FREE] 200-20MG/10 ML SYRUP UDCUP PO PRN (20:09)
[2017-08-11] MEDS: LORazepam 2 MG TABLET PO PRN ×3 (05:19→14:21)
[2017-08-11 06:20] VITALS: BP 118/60
[2017-08-11] MEDS: MULTIVITAMINS WITH MINERALS, THERAPEUTIC TABLET PO SCH (09:25)
[2017-08-11] MEDS: THIAMINE HCL 100 MG TABLET PO SCH ×2 (09:25→16:16)
[2017-08-11] MEDS: HALOPERIDOL 5 MG TABLET PO PRN (09:25)
[2017-08-11] MEDS: TRIHEXYPHENIDYL HCL 2 MG TABLET PO SCH ×3 (09:25→16:16)
[2017-08-11] MEDS: FOLIC ACID 1 MG TABLET PO SCH (09:25)
[2017-08-11] MEDS: NALTREXONE HCL 50 MG TABLET PO SCH (09:25)
[2017-08-11] MEDS: NICOTINE 21 MG/24 HOUR PATCH TD SCH (09:28)
[2017-08-11 10:24] VITALS: BP 124/61
[2017-08-11] MEDS ORDERED: DIAZEPAM 5 MG TABLET PO PRN (14:30)
[2017-08-11 17:36] VITALS: BP 117/66
[2017-08-11] MEDS: GuaiFENesin/D-METHORPHAN [SUGAR-FREE] 200-20MG/10 ML SYRUP UDCUP PO PRN (20:35)
[2017-08-11] MEDS: ZOLPIDEM TARTRATE 10 MG TABLET PO PRN (20:35)
[2017-08-11] MEDS: DIAZEPAM 5 MG TABLET PO PRN (20:35)
[2017-08-11] MEDS: HALOPERIDOL 10 MG TABLET PO SCH (20:35)
[2017-08-12 06:09] VITALS: BP 118/69
[2017-08-12] MEDS: HALOPERIDOL 5 MG TABLET PO PRN (06:15)
[2017-08-12] MEDS: DIAZEPAM 5 MG TABLET PO PRN ×3 (06:15→18:58)
[2017-08-12 08:37] VITALS: BP 128/51
[2017-08-12] MEDS: MULTIVITAMINS WITH MINERALS, THERAPEUTIC TABLET PO SCH (10:20)
[2017-08-12] MEDS: NALTREXONE HCL 50 MG TABLET PO SCH (10:20)
[2017-08-12] MEDS: FOLIC ACID 1 MG TABLET PO SCH (10:20)
[2017-08-12] MEDS: THIAMINE HCL 100 MG TABLET PO SCH ×2 (10:20→16:43)
[2017-08-12] MEDS: TRIHEXYPHENIDYL HCL 2 MG TABLET PO SCH ×3 (10:20→16:42)
[2017-08-12] MEDS: NICOTINE 21 MG/24 HOUR PATCH TD SCH (10:22)
[2017-08-12 16:11] VITALS: BP 111/65
[2017-08-12] MEDS: HALOPERIDOL 10 MG TABLET PO SCH (20:02)
[2017-08-12] MEDS: ZOLPIDEM TARTRATE 10 MG TABLET PO PRN (20:23)
[2017-08-13 06:56] VITALS: BP 107/62
[2017-08-13 08:16] VITALS: BP 110/80
[2017-08-13] MEDS: THIAMINE HCL 100 MG TABLET PO SCH ×2 (09:45→17:33)
[2017-08-13] MEDS: HALOPERIDOL 5 MG TABLET PO PRN ×2 (09:45→17:34)
[2017-08-13] MEDS: NALTREXONE HCL 50 MG TABLET PO SCH (09:45)
[2017-08-13] MEDS: DIAZEPAM 5 MG TABLET PO PRN ×2 (09:45→17:34)
[2017-08-13] MEDS: FOLIC ACID 1 MG TABLET PO SCH (09:45)
[2017-08-13] MEDS: TRIHEXYPHENIDYL HCL 2 MG TABLET PO SCH ×3 (09:45→17:33)
[2017-08-13] MEDS: MULTIVITAMINS WITH MINERALS, THERAPEUTIC TABLET PO SCH (09:45)
[2017-08-13] MEDS: NICOTINE 21 MG/24 HOUR PATCH TD SCH (09:46)
[2017-08-13 16:13] VITALS: BP 109/68
[2017-08-13] MEDS: HALOPERIDOL 10 MG TABLET PO SCH (20:49)
[2017-08-13] MEDS: ZOLPIDEM TARTRATE 10 MG TABLET PO PRN (20:49)
[2017-08-13] MEDS: HydrOXYzine PAMOATE 50 MG CAPSULE PO PRN (21:02)
[2017-08-14 06:48] VITALS: BP 110/65
[2017-08-14] MEDS: THIAMINE HCL 100 MG TABLET PO SCH ×2 (08:50→17:09)
[2017-08-14] MEDS: FOLIC ACID 1 MG TABLET PO SCH (08:51)
[2017-08-14] MEDS: NICOTINE 21 MG/24 HOUR PATCH TD SCH (08:51)
[2017-08-14] MEDS: NALTREXONE HCL 50 MG TABLET PO SCH (08:51)
[2017-08-14] MEDS: TRIHEXYPHENIDYL HCL 2 MG TABLET PO SCH ×3 (08:51→17:10)
[2017-08-14] MEDS: MULTIVITAMINS WITH MINERALS, THERAPEUTIC TABLET PO SCH (08:51)
[2017-08-14 09:15] VITALS: BP 110/65
[2017-08-14] MEDS: HALOPERIDOL 5 MG TABLET PO PRN ×2 (11:14→17:17)
[2017-08-14] MEDS: HydrOXYzine PAMOATE 50 MG CAPSULE PO PRN (11:14)
[2017-08-14] MEDS: DIAZEPAM 5 MG TABLET PO PRN ×2 (14:56→20:26)
[2017-08-14 16:21] VITALS: BP 120/71
[2017-08-14] MEDS: HALOPERIDOL 10 MG TABLET PO SCH (20:26)
[2017-08-15 00:38] VITALS: BP 109/77
[2017-08-15] MEDS: ZOLPIDEM TARTRATE 10 MG TABLET PO PRN (00:40)
[2017-08-15 08:24] VITALS: BP 114/65
[2017-08-15] MEDS: FOLIC ACID 1 MG TABLET PO SCH (09:22)
[2017-08-15] MEDS: TRIHEXYPHENIDYL HCL 2 MG TABLET PO SCH ×3 (09:22→16:56)
[2017-08-15] MEDS: MULTIVITAMINS WITH MINERALS, THERAPEUTIC TABLET PO SCH (09:22)
[2017-08-15] MEDS: THIAMINE HCL 100 MG TABLET PO SCH ×2 (09:22→16:56)
[2017-08-15] MEDS: NICOTINE 21 MG/24 HOUR PATCH TD SCH (09:23)
[2017-08-15] MEDS: NALTREXONE HCL 50 MG TABLET PO SCH (09:23)
[2017-08-15 16:16] VITALS: BP 122/75
[2017-08-15] MEDS: DIAZEPAM 5 MG TABLET PO PRN (16:56)
[2017-08-15] MEDS: HALOPERIDOL 5 MG TABLET PO PRN (16:56)
[2017-08-15] MEDS: HALOPERIDOL 10 MG TABLET PO SCH (20:25)
[2017-08-16 03:18] VITALS: BP 116/64
[2017-08-16] MEDS: DIAZEPAM 5 MG TABLET PO PRN ×2 (03:33→14:20)
[2017-08-16 08:00] VITALS: BP 110/68
[2017-08-16] MEDS: FOLIC ACID 1 MG TABLET PO SCH (08:52)
[2017-08-16] MEDS: THIAMINE HCL 100 MG TABLET PO SCH ×2 (08:53→16:19)
[2017-08-16] MEDS: TRIHEXYPHENIDYL HCL 2 MG TABLET PO SCH ×3 (08:53→16:20)
[2017-08-16] MEDS: MULTIVITAMINS WITH MINERALS, THERAPEUTIC TABLET PO SCH (08:53)
[2017-08-16] MEDS: NALTREXONE HCL 50 MG TABLET PO SCH (08:53)
[2017-08-16] MEDS: NICOTINE 21 MG/24 HOUR PATCH TD SCH (08:54)
[2017-08-16 16:32] VITALS: BP 107/68
[2017-08-16] MEDS: ZOLPIDEM TARTRATE 10 MG TABLET PO PRN (20:10)
[2017-08-16] MEDS: HALOPERIDOL 10 MG TABLET PO SCH (20:10)
[2017-08-17] MEDS: DIAZEPAM 5 MG TABLET PO PRN ×2 (05:21→14:22)
[2017-08-17 05:50] VITALS: BP 133/73
[2017-08-17 08:12] VITALS: BP 110/64
[2017-08-17] MEDS: TRIHEXYPHENIDYL HCL 2 MG TABLET PO SCH ×3 (08:22→16:35)
[2017-08-17] MEDS: FOLIC ACID 1 MG TABLET PO SCH (08:23)
[2017-08-17] MEDS: NALTREXONE HCL 50 MG TABLET PO SCH (08:23)
[2017-08-17] MEDS: NICOTINE 21 MG/24 HOUR PATCH TD SCH (08:23)
[2017-08-17] MEDS: THIAMINE HCL 100 MG TABLET PO SCH ×2 (08:23→16:35)
[2017-08-17] MEDS: MULTIVITAMINS WITH MINERALS, THERAPEUTIC TABLET PO SCH (08:23)
[2017-08-17 16:00] VITALS: BP 114/66
[2017-08-17] MEDS: HALOPERIDOL 5 MG TABLET PO PRN (16:36)
[2017-08-17] MEDS: ZOLPIDEM TARTRATE 10 MG TABLET PO PRN (20:50)
[2017-08-17] MEDS: HALOPERIDOL 10 MG TABLET PO SCH (20:50)
[2017-08-18 00:05] VITALS: BP 112/62
[2017-08-18] MEDS: DIAZEPAM 5 MG TABLET PO PRN ×3 (00:07→20:36)
[2017-08-18 08:46] VITALS: BP 114/64
[2017-08-18] MEDS: NALTREXONE HCL 50 MG TABLET PO SCH (09:57)
[2017-08-18] MEDS: TRIHEXYPHENIDYL HCL 2 MG TABLET PO SCH ×3 (09:57→16:30)
[2017-08-18] MEDS: FOLIC ACID 1 MG TABLET PO SCH (09:57)
[2017-08-18] MEDS: MULTIVITAMINS WITH MINERALS, THERAPEUTIC TABLET PO SCH (09:57)
[2017-08-18] MEDS: THIAMINE HCL 100 MG TABLET PO SCH ×2 (09:57→16:30)
[2017-08-18] MEDS: NICOTINE 21 MG/24 HOUR PATCH TD SCH (09:58)
[2017-08-18] MEDS: HALOPERIDOL 5 MG TABLET PO PRN (16:30)
[2017-08-18] MEDS: ZOLPIDEM TARTRATE 10 MG TABLET PO PRN (20:36)
[2017-08-18] MEDS: HALOPERIDOL 10 MG TABLET PO SCH (20:36)
[2017-08-19 06:30] VITALS: BP 122/72
[2017-08-19 08:33] VITALS: BP 114/67
[2017-08-19] MEDS: TRIHEXYPHENIDYL HCL 2 MG TABLET PO SCH ×3 (09:40→16:36)
[2017-08-19] MEDS: NALTREXONE HCL 50 MG TABLET PO SCH (09:40)
[2017-08-19] MEDS: FOLIC ACID 1 MG TABLET PO SCH (09:41)
[2017-08-19] MEDS: THIAMINE HCL 100 MG TABLET PO SCH ×2 (09:41→16:36)
[2017-08-19] MEDS: NICOTINE 21 MG/24 HOUR PATCH TD SCH (09:41)
[2017-08-19] MEDS: MULTIVITAMINS WITH MINERALS, THERAPEUTIC TABLET PO SCH (09:42)
[2017-08-19] MEDS: DIAZEPAM 5 MG TABLET PO PRN ×3 (11:04→20:37)
[2017-08-19] MEDS: HALOPERIDOL 5 MG TABLET PO PRN (16:36)
[2017-08-19] MEDS: ZOLPIDEM TARTRATE 10 MG TABLET PO PRN (20:37)
[2017-08-19] MEDS: HALOPERIDOL 10 MG TABLET PO SCH (20:37)
[2017-08-20 04:35] VITALS: BP 109/63
[2017-08-20] MEDS: DIAZEPAM 5 MG TABLET PO PRN ×2 (05:58→13:57)
[2017-08-20] MEDS: NALTREXONE HCL 50 MG TABLET PO SCH (08:51)
[2017-08-20] MEDS: MULTIVITAMINS WITH MINERALS, THERAPEUTIC TABLET PO SCH (08:51)
[2017-08-20] MEDS: NICOTINE 21 MG/24 HOUR PATCH TD SCH (08:51)
[2017-08-20] MEDS: FOLIC ACID 1 MG TABLET PO SCH (08:52)
[2017-08-20] MEDS: TRIHEXYPHENIDYL HCL 2 MG TABLET PO SCH ×3 (08:52→16:22)
[2017-08-20] MEDS: THIAMINE HCL 100 MG TABLET PO SCH ×2 (08:52→16:21)
[2017-08-20 09:31] VITALS: BP 108/61
[2017-08-20 16:22] VITALS: BP 120/70
[2017-08-20] MEDS: HALOPERIDOL 10 MG TABLET PO SCH (20:25)
[2017-08-20] MEDS: ZOLPIDEM TARTRATE 10 MG TABLET PO PRN (20:25)
[2017-08-21] MEDS: FOLIC ACID 1 MG TABLET PO SCH (09:31)
[2017-08-21] MEDS: MULTIVITAMINS WITH MINERALS, THERAPEUTIC TABLET PO SCH (09:31)
[2017-08-21] MEDS: NALTREXONE HCL 50 MG TABLET PO SCH (09:31)
[2017-08-21] MEDS: THIAMINE HCL 100 MG TABLET PO SCH ×2 (09:31→16:49)
[2017-08-21] MEDS: NICOTINE 21 MG/24 HOUR PATCH TD SCH (09:32)
[2017-08-21] MEDS: HALOPERIDOL 5 MG TABLET PO PRN ×2 (09:32→16:49)
[2017-08-21] MEDS: TRIHEXYPHENIDYL HCL 2 MG TABLET PO SCH ×3 (09:39→16:48)
[2017-08-21] MEDS: DIAZEPAM 5 MG TABLET PO PRN ×2 (10:47→16:49)
[2017-08-21] MEDS: ZOLPIDEM TARTRATE 10 MG TABLET PO PRN (20:24)
[2017-08-21] MEDS: HALOPERIDOL 10 MG TABLET PO SCH (20:24)
[2017-08-22 03:43] VITALS: BP 112/65
[2017-08-22 08:15] VITALS: BP 114/68
[2017-08-22] MEDS: NICOTINE 21 MG/24 HOUR PATCH TD SCH (08:44)
[2017-08-22] MEDS: HALOPERIDOL 5 MG TABLET PO PRN (08:45)
[2017-08-22] MEDS: NALTREXONE HCL 50 MG TABLET PO SCH (08:45)
[2017-08-22] MEDS: DIAZEPAM 5 MG TABLET PO PRN ×3 (08:45→17:37)
[2017-08-22] MEDS: FOLIC ACID 1 MG TABLET PO SCH (08:45)
[2017-08-22] MEDS: TRIHEXYPHENIDYL HCL 2 MG TABLET PO SCH ×3 (08:45→16:22)
[2017-08-22] MEDS: MULTIVITAMINS WITH MINERALS, THERAPEUTIC TABLET PO SCH (08:45)
[2017-08-22] MEDS: THIAMINE HCL 100 MG TABLET PO SCH ×2 (08:45→16:22)
[2017-08-22 16:58] VITALS: BP 120/72
[2017-08-22] MEDS: ZOLPIDEM TARTRATE 10 MG TABLET PO PRN (20:27)
[2017-08-22] MEDS: HALOPERIDOL 10 MG TABLET PO SCH (20:27)
[2017-08-23] MEDS: DIAZEPAM 5 MG TABLET PO PRN ×2 (00:47→08:21)
[2017-08-23 01:52] VITALS: BP 110/62
[2017-08-23] MEDS ORDERED: HALO5L PO (02:57)
[2017-08-23] MEDS ORDERED: TRIH2TAB3 PO ×2 (03:03→09:52)
[2017-08-23] MEDS ORDERED: HALO50VI4 IM (03:06)
[2017-08-23] MEDS: FOLIC ACID 1 MG TABLET PO SCH (08:21)
[2017-08-23] MEDS: THIAMINE HCL 100 MG TABLET PO SCH (08:21)
[2017-08-23] MEDS: TRIHEXYPHENIDYL HCL 2 MG TABLET PO SCH (08:21)
[2017-08-23] MEDS: NALTREXONE HCL 50 MG TABLET PO SCH (08:21)
[2017-08-23 08:23] VITALS: BP 115/68
[2017-08-23] MEDS: MULTIVITAMINS WITH MINERALS, THERAPEUTIC TABLET PO SCH (08:26)
[2017-08-23] MEDS: NICOTINE 21 MG/24 HOUR PATCH TD SCH (08:26)
[2017-08-23] MEDS ORDERED: HALOPERIDOL DECANOATE 50 MG/ML VIAL IM SCH (09:00)
[2017-08-23] MEDS ORDERED: HALO10 PO (09:46)
[2017-08-30] MEDS ORDERED: PALIPERIDONE PALMITATE 234 MG/1.5 ML SYRINGE IM SCH (09:00)
== END 2017-08-23 13:20 | disposition home or self-care (01) | DRG 885 ==
LOC: B3A 09:10
PROVIDERS: ADMIT Psychiatry & Neurology Psychiatry; ATTEND Psychiatry & Neurology Psychiatry
DX: F25.0 Schizoaffective disorder, bipolar type (principal); Z91.19 Patient's noncompliance with other medical treatment and regimen; B19.20 Unspecified viral hepatitis C without hepatic coma; F17.210 Nicotine dependence, cigarettes, uncomplicated; Z63.9 Problem related to primary support group, unspecified; F32.9 Major depressive disorder, single episode, unspecified; F90.9 Attention-deficit hyperactivity disorder, unspecified type; I10 Essential (primary) hypertension; J44.9 Chronic obstructive pulmonary disease, unspecified; K59.09 Other constipation; F19.11 Other psychoactive substance abuse, in remission
CPT/HCPCS: 80173; J1631; J3420

== ENCOUNTER 2017-09-16 01:15 | Inpatient (IN) | payer MEDICARE ==
[~2017-09-16] VITALS: Ht 167.6 cm; Wt 70.4 kg
[~2017-09-16 01:15] MED LIST changes: +HALO10 PO; +HALO50VI4 IM; -NALT50TA6 PO; -PALI156D IM; -PALI6 PO
[2017-09-16] MEDS ORDERED: HALOPERIDOL 5 MG TABLET PO PRN (01:30)
[2017-09-16 02:58] VITALS: BP 130/85
[2017-09-16] MEDS ORDERED: -PHARMACY VACCINE NOTE- MISC ONE (03:15)
[2017-09-16 08:36] VITALS: BP_SYST 118; BP_SYST 148; BP_DIAS 64
[2017-09-16] MEDS: NICOTINE 21 MG/24 HOUR PATCH TD SCH (08:48)
[2017-09-16] MEDS ORDERED: MAG HYDROX/AL HYDROX/SIMETH ES 30 ML SUSPENSION UDCUP PO PRN (12:00)
[2017-09-16] MEDS ORDERED: HALOPERIDOL DECANOATE 50 MG/ML VIAL IM ONE (12:00)
[2017-09-16] MEDS ORDERED: PROMETHAZINE HCL 25 MG TABLET PO PRN (12:00)
[2017-09-16] MEDS ORDERED: LOPERAMIDE HCL 2 MG CAPSULE PO PRN (12:00)
[2017-09-16] MEDS ORDERED: GuaiFENesin/D-METHORPHAN [SUGAR-FREE] 200-20MG/10 ML SYRUP UDCUP PO PRN (12:00)
[2017-09-16] MEDS ORDERED: ACETAMINOPHEN 325 MG TABLET PO PRN (12:00)
[2017-09-16] MEDS ORDERED: HydrOXYzine PAMOATE 50 MG CAPSULE PO PRN (12:00)
[2017-09-16] MEDS ORDERED: MAGNESIUM HYDROXIDE SUSPENSION 30 ML UDCUP PO PRN (12:00)
[2017-09-16] MEDS: LORazepam 2 MG TABLET PO PRN ×3 (12:17→21:36)
[2017-09-16 16:18] VITALS: BP 137/87
[2017-09-16] MEDS: THIAMINE HCL 100 MG TABLET PO SCH (16:51)
[2017-09-16] MEDS: HALOPERIDOL 10 MG TABLET PO SCH (20:40)
[2017-09-17 01:10] VITALS: BP 118/67
[2017-09-17] MEDS: LORazepam 2 MG TABLET PO PRN ×2 (05:28→18:48)
[2017-09-17 07:46] LABS: BASOPHILS % (AUTO) 0.7 % (0.0-2.0); EOSINOPHILS % (AUTO) 9.2 % (1.0-6.0); HEMOGLOBIN 13.7 g/dL (13.5-17.5); LYMPHOCYTES # (AUTO) 2.2 K/uL (1.0-4.8); LYMPHOCYTES % (AUTO) 41.8 % (22.0-44.0); MEAN CORPUSCULAR HEMOGLOBIN 27.6 pg (26.0-34.0); MEAN CORPUSCULAR HGB CONC 32.7 G/dL (31.0-37.0); MEAN CORPUSCULAR VOLUME 84 fL (80-100); MONOCYTES # (AUTO) 0.5 K/uL (0.1-1.0); NEUTROPHILS % (AUTO) 38.3 % (40.0-70.0); PLATELET COUNT (AUTO) 240 K/uL (150-450); RED BLOOD CELL COUNT(AUTO) 4.98 MIL/uL (4.50-5.90); RED CELL DISTRIBUTION WIDTH 14.3 % (11.5-14.5)
[2017-09-17 08:18] LABS: ALANINE AMINOTRANSFERASE 17 U/L (12-78); ALKALINE PHOSPHATASE 91 U/L (46-116); ANION GAP 4 mmol/L (8-16); ASPARTATE AMINOTRANSFERASE 11 U/L (15-37); BILIRUBIN,TOTAL 0.3 mg/dL (0.1-1.0); CALCIUM, TOTAL 8.3 mg/dL (8.8-10.5); CARBON DIOXIDE 29 mmol/L (22-29); CHLORIDE 105 mmol/L (98-107); CHOL/HDL RATIO 2.5 (4.2-7.3); CHOLESTEROL 129 mg/dL (131-200); CREATININE 0.78 mg/dL (0.60-1.30); FREE T4 (FREE THYROXINE) 1.26 ng/dL (0.76-1.46); GLOMERULAR FILTR. RATE CALC > 60 mL/min (>60); GLUCOSE,RANDOM 88 mg/dL (70-110); HDL CHOLESTEROL 51 mg/dL (40-60); LDL CHOL (CALC.) 69 mg/dL (0-130); POTASSIUM 4.1 mmol/L (3.5-5.1); SODIUM SERUM 138 mmol/L (136-145); THYROID STIMULATING HORMONE 0.44 uIU/mL (0.36-3.74); TOTAL PROTEIN, SERUM 6.1 g/dL (6.4-8.2); TRIGLYCERIDES 43 mg/dL (15-150); UREA NITROGEN, BLOOD 12 mg/dL (7-18)
[2017-09-17 08:24] LABS: HEMOGLOBIN A1C 5.4 % (4.5-6.2)
[2017-09-17 08:31] VITALS: BP 118/68
[2017-09-17] MEDS: NALTREXONE HCL 50 MG TABLET PO SCH (09:01)
[2017-09-17] MEDS: NICOTINE 21 MG/24 HOUR PATCH TD SCH (09:02)
[2017-09-17] MEDS: MULTIVITAMINS WITH MINERALS, THERAPEUTIC TABLET PO SCH (09:02)
[2017-09-17] MEDS: THIAMINE HCL 100 MG TABLET PO SCH ×2 (09:02→16:35)
[2017-09-17] MEDS: FOLIC ACID 1 MG TABLET PO SCH (09:02)
[2017-09-17] MEDS: TRIHEXYPHENIDYL HCL 2 MG TABLET PO SCH ×2 (12:29→16:35)
[2017-09-17 17:04] VITALS: BP 105/68
[2017-09-17 18:54] VITALS: BP 109/63
[2017-09-17] MEDS: HALOPERIDOL 10 MG TABLET PO SCH (20:40)
[2017-09-17] MEDS: ZOLPIDEM TARTRATE 10 MG TABLET PO PRN (22:52)
[2017-09-18 07:23] VITALS: BP 109/60
[2017-09-18 08:04] VITALS: BP 114/70
[2017-09-18] MEDS: MULTIVITAMINS WITH MINERALS, THERAPEUTIC TABLET PO SCH (08:41)
[2017-09-18] MEDS: FOLIC ACID 1 MG TABLET PO SCH (08:41)
[2017-09-18] MEDS: NALTREXONE HCL 50 MG TABLET PO SCH (08:41)
[2017-09-18] MEDS: TRIHEXYPHENIDYL HCL 2 MG TABLET PO SCH ×3 (08:45→16:30)
[2017-09-18] MEDS: THIAMINE HCL 100 MG TABLET PO SCH ×2 (08:46→16:30)
[2017-09-18] MEDS: NICOTINE 21 MG/24 HOUR PATCH TD SCH (08:47)
[2017-09-18] MEDS: LORazepam 2 MG TABLET PO PRN ×2 (14:15→18:36)
[2017-09-18 16:21] VITALS: BP 105/60
[2017-09-18 18:36] VITALS: BP 110/62
[2017-09-18] MEDS: HALOPERIDOL 10 MG TABLET PO SCH (20:36)
[2017-09-19 01:21] VITALS: BP 107/62
[2017-09-19 08:36] VITALS: BP 108/68
[2017-09-19] MEDS: TRIHEXYPHENIDYL HCL 2 MG TABLET PO SCH ×3 (08:53→16:02)
[2017-09-19] MEDS: FOLIC ACID 1 MG TABLET PO SCH (08:53)
[2017-09-19] MEDS: MULTIVITAMINS WITH MINERALS, THERAPEUTIC TABLET PO SCH (08:53)
[2017-09-19] MEDS: NICOTINE 21 MG/24 HOUR PATCH TD SCH (08:53)
[2017-09-19] MEDS: THIAMINE HCL 100 MG TABLET PO SCH ×2 (08:53→16:02)
[2017-09-19] MEDS: NALTREXONE HCL 50 MG TABLET PO SCH (08:53)
[2017-09-19] MEDS: LORazepam 2 MG TABLET PO PRN ×2 (13:06→17:46)
[2017-09-19 16:16] VITALS: BP 117/65
[2017-09-19] MEDS: HALOPERIDOL 10 MG TABLET PO SCH (20:06)
[2017-09-20 00:36] VITALS: BP 126/64
[2017-09-20] MEDS: LORazepam 2 MG TABLET PO PRN ×3 (03:22→16:10)
[2017-09-20 08:17] VITALS: BP 120/72
[2017-09-20] MEDS: TRIHEXYPHENIDYL HCL 2 MG TABLET PO SCH ×3 (08:43→16:34)
[2017-09-20] MEDS: MULTIVITAMINS WITH MINERALS, THERAPEUTIC TABLET PO SCH (08:43)
[2017-09-20] MEDS: THIAMINE HCL 100 MG TABLET PO SCH ×2 (08:43→16:34)
[2017-09-20] MEDS: FOLIC ACID 1 MG TABLET PO SCH (08:43)
[2017-09-20] MEDS: NALTREXONE HCL 50 MG TABLET PO SCH (08:43)
[2017-09-20] MEDS: NICOTINE 21 MG/24 HOUR PATCH TD SCH (08:44)
[2017-09-20] MEDS: HALOPERIDOL 5 MG TABLET PO PRN (14:11)
[2017-09-20 16:05] VITALS: BP 122/75
[2017-09-20] MEDS: HALOPERIDOL 10 MG TABLET PO SCH (20:40)
[2017-09-21] MEDS: ZOLPIDEM TARTRATE 10 MG TABLET PO PRN (00:25)
[2017-09-21 00:30] VITALS: BP 102/67
[2017-09-21 08:10] VITALS: BP 100/68
[2017-09-21] MEDS: MULTIVITAMINS WITH MINERALS, THERAPEUTIC TABLET PO SCH (08:39)
[2017-09-21] MEDS: THIAMINE HCL 100 MG TABLET PO SCH ×2 (08:39→16:43)
[2017-09-21] MEDS: NALTREXONE HCL 50 MG TABLET PO SCH (08:40)
[2017-09-21] MEDS: FOLIC ACID 1 MG TABLET PO SCH (08:40)
[2017-09-21] MEDS: TRIHEXYPHENIDYL HCL 2 MG TABLET PO SCH ×3 (08:40→16:43)
[2017-09-21] MEDS: NICOTINE 21 MG/24 HOUR PATCH TD SCH (08:40)
[2017-09-21 10:35] VITALS: BP 117/60
[2017-09-21] MEDS: LORazepam 2 MG TABLET PO PRN ×2 (10:38→16:21)
[2017-09-21] MEDS ORDERED: HALO10 PO (14:18)
[2017-09-21] MEDS ORDERED: HALO50VI4 IM (14:18)
[2017-09-21] MEDS ORDERED: NALT50TA PO (14:19)
[2017-09-21] MEDS ORDERED: TRIH2TAB3 PO (14:19)
[2017-09-21] MEDS: HALOPERIDOL 5 MG TABLET PO PRN (14:24)
[2017-09-21 16:11] VITALS: BP 118/64
[2017-09-21] MEDS: HALOPERIDOL 10 MG TABLET PO SCH (20:39)
[2017-09-22 01:50] VITALS: BP 115/67
[2017-09-22] MEDS: ZOLPIDEM TARTRATE 10 MG TABLET PO PRN (01:51)
[2017-09-22] MEDS: MULTIVITAMINS WITH MINERALS, THERAPEUTIC TABLET PO SCH (08:26)
[2017-09-22] MEDS ORDERED: FOLI1 PO (08:26)
[2017-09-22] MEDS: NALTREXONE HCL 50 MG TABLET PO SCH (08:26)
[2017-09-22] MEDS: THIAMINE HCL 100 MG TABLET PO SCH (08:26)
[2017-09-22] MEDS: TRIHEXYPHENIDYL HCL 2 MG TABLET PO SCH ×2 (08:26→12:19)
[2017-09-22] MEDS ORDERED: MULT-1239 PO (08:26)
[2017-09-22] MEDS: FOLIC ACID 1 MG TABLET PO SCH (08:26)
[2017-09-22] MEDS ORDERED: THIA100 PO (08:26)
[2017-09-22] MEDS: NICOTINE 21 MG/24 HOUR PATCH TD SCH (08:27)
[2017-09-22] MEDS ORDERED: NALT50TA6 PO (08:34)
[2017-09-22 08:58] VITALS: BP 100/61
[2017-09-30] MEDS ORDERED: HALOPERIDOL DECANOATE 50 MG/ML VIAL IM SCH (09:00)
== END 2017-09-22 13:15 | disposition home or self-care (01) | DRG 885 ==
LOC: B2X 02:00 → EDSTATUS 02:27 → B2X 09-17 13:30
PROVIDERS: ADMIT Psychiatry & Neurology Psychiatry; ATTEND Psychiatry & Neurology Psychiatry
DX: F23 Brief psychotic disorder (principal); B19.20 Unspecified viral hepatitis C without hepatic coma; E46 Unspecified protein-calorie malnutrition; F25.0 Schizoaffective disorder, bipolar type; Z91.14 Patient's other noncompliance with medication regimen; F19.10 Other psychoactive substance abuse, uncomplicated; F17.200 Nicotine dependence, unspecified, uncomplicated; I10 Essential (primary) hypertension; J45.909 Unspecified asthma, uncomplicated; K21.9 Gastro-esophageal reflux disease without esophagitis; D64.9 Anemia, unspecified; F90.9 Attention-deficit hyperactivity disorder, unspecified type; K59.00 Constipation, unspecified; Z68.25 Body mass index [BMI] 25.0-25.9, adult
CPT/HCPCS: 80173; 83036; 84439; 84443; 87081; 99285; J1631

== ENCOUNTER 2017-10-24 07:02 | Inpatient (IN) | payer MEDICARE ==
[~2017-10-24] VITALS: Ht 167.6 cm; Wt 70.9 kg
[~2017-10-24 07:02] MED LIST changes: +NALT50TA PO
[2017-10-24 08:41] VITALS: BP 120/72
[2017-10-24] MEDS ORDERED: HALOPERIDOL 5 MG TABLET PO PRN (09:30)
[2017-10-24 11:43] VITALS: BP 113/69
[2017-10-24] MEDS ORDERED: TRIHEXYPHENIDYL HCL 2 MG TABLET PO SCH (13:00)
[2017-10-24] MEDS ORDERED: PALIPERIDONE 1.5 MG ER TABLET PO PRN (14:45)
[2017-10-24] MEDS ORDERED: PROMETHAZINE HCL 25 MG TABLET PO PRN (14:45)
[2017-10-24] MEDS ORDERED: HydrOXYzine PAMOATE 50 MG CAPSULE PO PRN (14:45)
[2017-10-24] MEDS ORDERED: ACETAMINOPHEN 325 MG TABLET PO PRN (14:45)
[2017-10-24] MEDS ORDERED: LOPERAMIDE HCL 2 MG CAPSULE PO PRN (14:45)
[2017-10-24] MEDS ORDERED: MAG HYDROX/AL HYDROX/SIMETH ES 30 ML SUSPENSION UDCUP PO PRN (14:45)
[2017-10-24] MEDS ORDERED: PALIPERIDONE PALMITATE 234 MG/1.5 ML SYRINGE IM ONE (14:45)
[2017-10-24 16:19] VITALS: BP 109/69
[2017-10-24] MEDS: THIAMINE HCL 100 MG TABLET PO SCH (16:40)
[2017-10-24] MEDS: LORazepam 2 MG TABLET PO PRN (19:56)
[2017-10-24] MEDS ORDERED: PALIPERIDONE 3 MG ER TABLET PO SCH (21:00)
[2017-10-24] MEDS ORDERED: HALOPERIDOL 10 MG TABLET PO SCH (21:00)
[2017-10-25 00:43] VITALS: BP 124/66
[2017-10-25] MEDS: LORazepam 2 MG TABLET PO PRN ×3 (04:02→15:11)
[2017-10-25 07:45] LABS: BASOPHILS % (AUTO) 0.5 % (0.0-2.0); EOSINOPHILS % (AUTO) 6.1 % (1.0-6.0); HEMATOCRIT 40.8 % (41-53); HEMOGLOBIN 13.2 g/dL (13.5-17.5); LYMPHOCYTES # (AUTO) 2.4 K/uL (1.0-4.8); LYMPHOCYTES % (AUTO) 43.7 % (22.0-44.0); MEAN CORPUSCULAR HEMOGLOBIN 27.2 pg (26.0-34.0); MEAN CORPUSCULAR HGB CONC 32.2 G/dL (31.0-37.0); MEAN CORPUSCULAR VOLUME 84 fL (80-100); MONOCYTES # (AUTO) 0.6 K/uL (0.1-1.0); MONOCYTES % (AUTO) 10.9 % (2.0-9.0); NEUTROPHILS # (AUTO) 2.1 K/uL (1.8-7.7); NEUTROPHILS % (AUTO) 38.8 % (40.0-70.0); PLATELET COUNT (AUTO) 199 K/uL (150-450); RED BLOOD CELL COUNT(AUTO) 4.84 MIL/uL (4.50-5.90); RED CELL DISTRIBUTION WIDTH 14.1 % (11.5-14.5)
[2017-10-25 08:31] LABS: ALANINE AMINOTRANSFERASE 21 U/L (12-78); ALBUMIN 2.8 g/dL (3.4-5.0); ALKALINE PHOSPHATASE 84 U/L (46-116); ANION GAP 7 mmol/L (8-16); ASPARTATE AMINOTRANSFERASE 13 U/L (15-37); BILIRUBIN,TOTAL 0.3 mg/dL (0.1-1.0); CALCIUM, TOTAL 8.1 mg/dL (8.8-10.5); CARBON DIOXIDE 28 mmol/L (22-29); CHLORIDE 107 mmol/L (98-107); CHOL/HDL RATIO 2.5 (4.2-7.3); CHOLESTEROL 113 mg/dL (131-200); CREATININE 0.66 mg/dL (0.60-1.30); FREE T4 (FREE THYROXINE) 1.01 ng/dL (0.76-1.46); GLOMERULAR FILTR. RATE CALC > 60 mL/min (>60); GLUCOSE,RANDOM 88 mg/dL (70-110); HDL CHOLESTEROL 46 mg/dL (40-60); LDL CHOL (CALC.) 64 mg/dL (0-130); POTASSIUM 3.9 mmol/L (3.5-5.1); SODIUM SERUM 142 mmol/L (136-145); THYROID STIMULATING HORMONE 1.66 uIU/mL (0.36-3.74); TOTAL PROTEIN, SERUM 5.4 g/dL (6.4-8.2); TRIGLYCERIDES 17 mg/dL (15-150); UREA NITROGEN, BLOOD 10 mg/dL (7-18)
[2017-10-25 08:47] VITALS: BP 123/66
[2017-10-25] MEDS: MULTIVITAMINS WITH MINERALS, THERAPEUTIC TABLET PO SCH (08:54)
[2017-10-25] MEDS: THIAMINE HCL 100 MG TABLET PO SCH ×2 (08:54→16:44)
[2017-10-25] MEDS: NALTREXONE HCL 50 MG TABLET PO SCH (08:55)
[2017-10-25] MEDS: NICOTINE 21 MG/24 HOUR PATCH TD SCH (08:55)
[2017-10-25] MEDS: FOLIC ACID 1 MG TABLET PO SCH (08:55)
[2017-10-25 09:23] LABS: AMPHET/METH SCREEN,URINE NEGATIVE (NEGATIVE); BARBITURATE SCREEN, URINE NEGATIVE (NEGATIVE); BENZODIAZEPINES SCREEN,URINE NEGATIVE (NEGATIVE); CANNABINOID SCREEN,URINE POSITIVE (NEGATIVE); COCAINE SCREEN,URINE NEGATIVE (NEGATIVE); METHADONE SCREEN, URINE NEGATIVE (NEGATIVE); OPIATE SCREEN,URINE NEGATIVE (NEGATIVE)
[2017-10-25 09:38] LABS: APPEARANCE,URINE CLEAR (CLEAR); BILIRUBIN,URINE NEGATIVE (NEGATIVE); GLUCOSE, URINE (UA) NEGATIVE (NEGATIVE); KETONES,URINE NEGATIVE (NEGATIVE); LEUKOCYTE ESTERASE ,URINE NEGATIVE (NEGATIVE); NITRATE,URINE NEGATIVE (NEGATIVE); OCCULT BLOOD,URINE NEGATIVE (NEGATIVE); PH,URINE 6.5 (5.0-8.0); PROTEIN,URINE NEGATIVE (NEGATIVE)
[2017-10-25 09:55] LABS: PHENCYCLIDINE SCREEN,URINE NEGATIVE (NEGATIVE)
[2017-10-25 14:09] LABS: HEMOGLOBIN A1C 5.2 % (4.5-6.2)
[2017-10-25 16:00] VITALS: BP 128/76
[2017-10-26 01:24] VITALS: BP 110/63
[2017-10-26 08:56] VITALS: BP 118/75
[2017-10-26] MEDS: THIAMINE HCL 100 MG TABLET PO SCH ×2 (08:59→16:39)
[2017-10-26] MEDS: FOLIC ACID 1 MG TABLET PO SCH (08:59)
[2017-10-26] MEDS: NALTREXONE HCL 50 MG TABLET PO SCH (08:59)
[2017-10-26] MEDS: MULTIVITAMINS WITH MINERALS, THERAPEUTIC TABLET PO SCH (08:59)
[2017-10-26] MEDS: NICOTINE 21 MG/24 HOUR PATCH TD SCH (09:00)
[2017-10-26] MEDS: LORazepam 2 MG TABLET PO PRN ×2 (12:54→18:35)
[2017-10-26 16:10] VITALS: BP 113/69
[2017-10-26] MEDS: DIVALPROEX SODIUM 500 MG ER TABLET PO SCH (20:30)
[2017-10-27 05:56] VITALS: BP 103/60
[2017-10-27] MEDS: NALTREXONE HCL 50 MG TABLET PO SCH (08:04)
[2017-10-27] MEDS: MULTIVITAMINS WITH MINERALS, THERAPEUTIC TABLET PO SCH (08:04)
[2017-10-27] MEDS: FOLIC ACID 1 MG TABLET PO SCH (08:05)
[2017-10-27] MEDS: THIAMINE HCL 100 MG TABLET PO SCH ×2 (08:05→16:29)
[2017-10-27] MEDS: NICOTINE 21 MG/24 HOUR PATCH TD SCH (08:05)
[2017-10-27 10:34] VITALS: BP 121/61
[2017-10-27] MEDS: LORazepam 2 MG TABLET PO PRN (12:55)
[2017-10-27 16:13] VITALS: BP 112/62
[2017-10-27] MEDS: DIVALPROEX SODIUM 500 MG ER TABLET PO SCH (20:30)
[2017-10-28 03:30] VITALS: BP 108/47
[2017-10-28] MEDS: LORazepam 2 MG TABLET PO PRN ×3 (03:39→17:13)
[2017-10-28 08:41] VITALS: BP 102/60
[2017-10-28] MEDS ORDERED: PALIPERIDONE PALMITATE 156 MG/ML SYRINGE IM ONE (09:00)
[2017-10-28] MEDS: FOLIC ACID 1 MG TABLET PO SCH (09:08)
[2017-10-28] MEDS: THIAMINE HCL 100 MG TABLET PO SCH ×2 (09:08→16:28)
[2017-10-28] MEDS: NALTREXONE HCL 50 MG TABLET PO SCH (09:08)
[2017-10-28] MEDS: MULTIVITAMINS WITH MINERALS, THERAPEUTIC TABLET PO SCH (09:08)
[2017-10-28] MEDS: NICOTINE 21 MG/24 HOUR PATCH TD SCH (09:09)
[2017-10-28 16:19] VITALS: BP 106/62
[2017-10-28] MEDS: DIVALPROEX SODIUM 500 MG ER TABLET PO SCH (20:28)
[2017-10-29 06:35] VITALS: BP 108/63
[2017-10-29 08:31] VITALS: BP 100/65
[2017-10-29] MEDS: MULTIVITAMINS WITH MINERALS, THERAPEUTIC TABLET PO SCH (08:50)
[2017-10-29] MEDS: NALTREXONE HCL 50 MG TABLET PO SCH (08:50)
[2017-10-29] MEDS: NICOTINE 21 MG/24 HOUR PATCH TD SCH (08:50)
[2017-10-29] MEDS: FOLIC ACID 1 MG TABLET PO SCH (08:50)
[2017-10-29] MEDS: THIAMINE HCL 100 MG TABLET PO SCH ×2 (08:50→16:36)
[2017-10-29] MEDS: LORazepam 2 MG TABLET PO PRN ×2 (10:12→20:08)
[2017-10-29 16:35] VITALS: BP 115/63
[2017-10-29] MEDS: DIVALPROEX SODIUM 500 MG ER TABLET PO SCH (20:43)
[2017-10-29] MEDS: ZOLPIDEM TARTRATE 10 MG TABLET PO PRN (21:08)
[2017-10-30] VITALS: BP 113/68
[2017-10-30 08:35] VITALS: BP 121/72
[2017-10-30] MEDS: NALTREXONE HCL 50 MG TABLET PO SCH (08:58)
[2017-10-30] MEDS: THIAMINE HCL 100 MG TABLET PO SCH ×2 (08:58→16:40)
[2017-10-30] MEDS: FOLIC ACID 1 MG TABLET PO SCH (08:58)
[2017-10-30] MEDS: MULTIVITAMINS WITH MINERALS, THERAPEUTIC TABLET PO SCH (08:58)
[2017-10-30] MEDS: NICOTINE 21 MG/24 HOUR PATCH TD SCH (08:59)
[2017-10-30] MEDS: LORazepam 2 MG TABLET PO PRN (10:39)
[2017-10-30 16:38] VITALS: BP 106/61
[2017-10-30] MEDS: TRIHEXYPHENIDYL HCL 5 MG TABLET PO SCH (16:39)
[2017-10-30] MEDS: DIVALPROEX SODIUM 500 MG ER TABLET PO SCH (20:38)
[2017-10-30] MEDS: ZOLPIDEM TARTRATE 10 MG TABLET PO PRN (21:57)
[2017-10-31] VITALS: BP 106/63
[2017-10-31] MEDS: THIAMINE HCL 100 MG TABLET PO SCH ×2 (08:06→16:38)
[2017-10-31] MEDS: FOLIC ACID 1 MG TABLET PO SCH (08:06)
[2017-10-31] MEDS: NALTREXONE HCL 50 MG TABLET PO SCH (08:06)
[2017-10-31] MEDS: TRIHEXYPHENIDYL HCL 5 MG TABLET PO SCH ×3 (08:06→16:38)
[2017-10-31] MEDS: LORazepam 2 MG TABLET PO PRN ×3 (08:06→22:44)
[2017-10-31] MEDS: MULTIVITAMINS WITH MINERALS, THERAPEUTIC TABLET PO SCH (08:06)
[2017-10-31] MEDS: NICOTINE 21 MG/24 HOUR PATCH TD SCH (08:06)
[2017-10-31 08:42] VITALS: BP 128/76
[2017-10-31 16:24] VITALS: BP 136/84
[2017-10-31] MEDS: GuaiFENesin/D-METHORPHAN [SUGAR-FREE] 200-20MG/10 ML SYRUP UDCUP PO PRN (20:39)
[2017-11-01] VITALS: BP 101/62
[2017-11-01 08:22] VITALS: BP 103/61
[2017-11-01] MEDS: FOLIC ACID 1 MG TABLET PO SCH (08:58)
[2017-11-01] MEDS: MULTIVITAMINS WITH MINERALS, THERAPEUTIC TABLET PO SCH (08:58)
[2017-11-01] MEDS: THIAMINE HCL 100 MG TABLET PO SCH ×2 (08:58→16:44)
[2017-11-01] MEDS: NALTREXONE HCL 50 MG TABLET PO SCH (08:58)
[2017-11-01] MEDS: TRIHEXYPHENIDYL HCL 5 MG TABLET PO SCH ×3 (08:58→16:44)
[2017-11-01] MEDS: BuPROPion HCL XL 150 MG ER TABLET PO SCH (08:58)
[2017-11-01] MEDS: NICOTINE 21 MG/24 HOUR PATCH TD SCH (08:59)
[2017-11-01] MEDS: LORazepam 2 MG TABLET PO PRN (13:56)
[2017-11-01] MEDS: GuaiFENesin/D-METHORPHAN [SUGAR-FREE] 200-20MG/10 ML SYRUP UDCUP PO PRN (13:57)
[2017-11-01 16:25] VITALS: BP 107/68
[2017-11-01] MEDS: ZOLPIDEM TARTRATE 10 MG TABLET PO PRN (22:34)
[2017-11-02 00:03] VITALS: BP 123/75
[2017-11-02] MEDS: LORazepam 2 MG TABLET PO PRN ×2 (00:05→12:07)
[2017-11-02 00:39] VITALS: BP 123/75
[2017-11-02 02:42] VITALS: BP 123/75
[2017-11-02] MEDS: MULTIVITAMINS WITH MINERALS, THERAPEUTIC TABLET PO SCH (08:27)
[2017-11-02] MEDS: THIAMINE HCL 100 MG TABLET PO SCH ×2 (08:27→16:37)
[2017-11-02] MEDS: TRIHEXYPHENIDYL HCL 5 MG TABLET PO SCH ×3 (08:27→16:37)
[2017-11-02] MEDS: BuPROPion HCL XL 150 MG ER TABLET PO SCH (08:27)
[2017-11-02] MEDS: FOLIC ACID 1 MG TABLET PO SCH (08:28)
[2017-11-02] MEDS: NICOTINE 21 MG/24 HOUR PATCH TD SCH (08:28)
[2017-11-02] MEDS: NALTREXONE HCL 50 MG TABLET PO SCH (08:28)
[2017-11-02 08:30] VITALS: BP 118/72
[2017-11-02] MEDS: GuaiFENesin/D-METHORPHAN [SUGAR-FREE] 200-20MG/10 ML SYRUP UDCUP PO PRN ×2 (10:21→17:37)
[2017-11-02 16:27] VITALS: BP 117/64
[2017-11-03 00:41] VITALS: BP_SYST 105; BP_SYST 124; BP_DIAS 60; BP_DIAS 63
[2017-11-03 08:46] VITALS: BP 102/55
[2017-11-03] MEDS: NALTREXONE HCL 50 MG TABLET PO SCH (08:46)
[2017-11-03] MEDS: MULTIVITAMINS WITH MINERALS, THERAPEUTIC TABLET PO SCH (08:46)
[2017-11-03] MEDS: TRIHEXYPHENIDYL HCL 5 MG TABLET PO SCH ×3 (08:46→16:52)
[2017-11-03] MEDS: THIAMINE HCL 100 MG TABLET PO SCH (08:46)
[2017-11-03] MEDS: BuPROPion HCL XL 150 MG ER TABLET PO SCH (08:47)
[2017-11-03] MEDS: NICOTINE 21 MG/24 HOUR PATCH TD SCH (08:47)
[2017-11-03] MEDS: FOLIC ACID 1 MG TABLET PO SCH (08:47)
[2017-11-03] MEDS ORDERED: BUPR-47 PO (11:50)
[2017-11-03] MEDS ORDERED: PALI234D IM (11:50)
[2017-11-03] MEDS ORDERED: NALT50TA PO (11:50)
[2017-11-03] MEDS ORDERED: ZOLP10TA2 PO (11:50)
[2017-11-03] MEDS: LORazepam 2 MG TABLET PO PRN ×2 (12:10→21:46)
[2017-11-03 16:22] VITALS: BP 112/71
[2017-11-03] MEDS: ZOLPIDEM TARTRATE 10 MG TABLET PO PRN (20:52)
[2017-11-03] MEDS: MAGNESIUM HYDROXIDE SUSPENSION 30 ML UDCUP PO PRN (21:46)
[2017-11-04 01:55] VITALS: BP 122/67
[2017-11-04] MEDS: GuaiFENesin/D-METHORPHAN [SUGAR-FREE] 200-20MG/10 ML SYRUP UDCUP PO PRN (05:30)
[2017-11-04] MEDS: MAGNESIUM HYDROXIDE SUSPENSION 30 ML UDCUP PO PRN (05:30)
[2017-11-04 08:48] VITALS: BP 131/78
[2017-11-04] MEDS: BuPROPion HCL XL 150 MG ER TABLET PO SCH (08:53)
[2017-11-04] MEDS: TRIHEXYPHENIDYL HCL 5 MG TABLET PO SCH (08:53)
[2017-11-04] MEDS: MULTIVITAMINS WITH MINERALS, THERAPEUTIC TABLET PO SCH (08:53)
[2017-11-04] MEDS: NALTREXONE HCL 50 MG TABLET PO SCH (08:53)
[2017-11-04] MEDS: NICOTINE 21 MG/24 HOUR PATCH TD SCH (08:55)
[2017-11-04] MEDS ORDERED: TRIH5TAB2 PO ×2 (11:23→11:27)
[2017-11-04] MEDS ORDERED: NALT50TA6 PO (11:23)
[2017-11-04] MEDS ORDERED: BUPR-93 PO (11:23)
== END 2017-11-04 12:52 | disposition home or self-care (01) | DRG 885 ==
LOC: EDSTATUS 08:54 → B2X 10:28
PROVIDERS: ADMIT Psychiatry & Neurology Psychiatry; ATTEND Psychiatry & Neurology Psychiatry
DX: F25.0 Schizoaffective disorder, bipolar type (principal); Z91.14 Patient's other noncompliance with medication regimen; B19.20 Unspecified viral hepatitis C without hepatic coma; F17.210 Nicotine dependence, cigarettes, uncomplicated; D64.9 Anemia, unspecified; F90.9 Attention-deficit hyperactivity disorder, unspecified type; I10 Essential (primary) hypertension; J45.909 Unspecified asthma, uncomplicated; Z79.899 Other long term (current) drug therapy
CPT/HCPCS: 83036; 84439; 84443; 86592

== ENCOUNTER 2018-02-25 15:34 | Inpatient (IN) | payer MEDICARE, MEDICAID ==
[~2018-02-25] VITALS: Ht 167.6 cm; Wt 72.7 kg
[~2018-02-25 15:34] MED LIST changes: -HALO10 PO; -HALO50VI4 IM; +PALI234D IM; -TRIH2TAB3 PO; +TRIH5TAB2 PO
[2018-02-25] MEDS ORDERED: ZOLPIDEM TARTRATE 10 MG TABLET PO PRN (17:00)
[2018-02-25 19:00] VITALS: BP 118/75
[2018-02-25] MEDS: HALOPERIDOL 5 MG TABLET PO PRN (19:00)
[2018-02-25] MEDS: TRIHEXYPHENIDYL HCL 5 MG TABLET PO SCH (19:00)
[2018-02-25] MEDS: HydrOXYzine PAMOATE 25 MG CAPSULE PO PRN (19:00)
[2018-02-25] MEDS ORDERED: -PHARMACY VACCINE NOTE- MISC ONE (19:15)
[2018-02-25] MEDS: DIVALPROEX SODIUM 500 MG ER TABLET PO SCH (21:04)
[2018-02-26 05:54] VITALS: BP 130/76
[2018-02-26 05:57] VITALS: BP 116/72
[2018-02-26 08:36] VITALS: BP 105/66
[2018-02-26] MEDS: TRIHEXYPHENIDYL HCL 5 MG TABLET PO SCH ×2 (09:03→16:38)
[2018-02-26] MEDS: NICOTINE 21 MG/24 HOUR PATCH TD SCH (09:03)
[2018-02-26] MEDS: HydrOXYzine PAMOATE 25 MG CAPSULE PO PRN (15:15)
[2018-02-26 16:30] VITALS: BP 116/70
[2018-02-26] MEDS: HALOPERIDOL 5 MG TABLET PO PRN (16:38)
[2018-02-26] MEDS: DiphenhydrAMINE HCL 25 MG CAPSULE PO SCH (20:57)
[2018-02-26] MEDS: DIVALPROEX SODIUM 500 MG ER TABLET PO SCH (20:57)
[2018-02-26] MEDS ORDERED: OLANZapine 5 MG RAPDIS TABLET PO SCH (21:00)
[2018-02-26] MEDS ORDERED: RisperiDONE 2 MG TABLET PO SCH (21:00)
[2018-02-27 06:01] VITALS: BP 110/69
[2018-02-27 08:39] LABS: BASOPHILS % (AUTO) 0.6 % (0.0-2.0); EOSINOPHILS % (AUTO) 8.9 % (1.0-6.0); HEMATOCRIT 38.9 % (41-53); HEMOGLOBIN 12.8 g/dL (13.5-17.5); LYMPHOCYTES # (AUTO) 2.6 K/uL (1.0-4.8); LYMPHOCYTES % (AUTO) 46.6 % (22.0-44.0); MEAN CORPUSCULAR HGB CONC 32.9 G/dL (31.0-37.0); MEAN CORPUSCULAR VOLUME 85 fL (80-100); MONOCYTES # (AUTO) 0.5 K/uL (0.1-1.0); MONOCYTES % (AUTO) 8.2 % (2.0-9.0); NEUTROPHILS % (AUTO) 35.7 % (40.0-70.0); PLATELET COUNT (AUTO) 220 K/uL (150-450); RED BLOOD CELL COUNT(AUTO) 4.56 MIL/uL (4.50-5.90); RED CELL DISTRIBUTION WIDTH 14.3 % (11.5-14.5)
[2018-02-27 08:49] VITALS: BP 118/76
[2018-02-27 09:03] LABS: HEMOGLOBIN A1C 5.2 % (4.5-6.2)
[2018-02-27] MEDS: TRIHEXYPHENIDYL HCL 5 MG TABLET PO SCH ×2 (09:06→16:40)
[2018-02-27] MEDS: NICOTINE 21 MG/24 HOUR PATCH TD SCH (09:06)
[2018-02-27] MEDS: HydrOXYzine PAMOATE 25 MG CAPSULE PO PRN ×2 (10:07→17:12)
[2018-02-27 11:37] LABS: ALANINE AMINOTRANSFERASE 19 U/L (12-78); ALBUMIN 3.2 g/dL (3.4-5.0); ALKALINE PHOSPHATASE 82 U/L (46-116); ANION GAP 7 mmol/L (8-16); ASPARTATE AMINOTRANSFERASE 12 U/L (15-37); BILIRUBIN,TOTAL 0.4 mg/dL (0.1-1.0); CALCIUM, TOTAL 8.4 mg/dL (8.8-10.5); CARBON DIOXIDE 29 mmol/L (22-29); CHLORIDE 106 mmol/L (98-107); CHOL/HDL RATIO 2.5 (4.2-7.3); CHOLESTEROL 137 mg/dL (131-200); CREATININE 0.89 mg/dL (0.60-1.30); FREE T4 (FREE THYROXINE) 1.01 ng/dL (0.76-1.46); GLOMERULAR FILTR. RATE CALC > 60 mL/min (>60); GLUCOSE,RANDOM 75 mg/dL (70-110); HDL CHOLESTEROL 54 mg/dL (40-60); LDL CHOL (CALC.) 76 mg/dL (0-130); POTASSIUM 3.8 mmol/L (3.5-5.1); SODIUM SERUM 142 mmol/L (136-145); THYROID STIMULATING HORMONE 1.28 uIU/mL (0.36-3.74); TOTAL PROTEIN, SERUM 6.2 g/dL (6.4-8.2); TRIGLYCERIDES 37 mg/dL (15-150); UREA NITROGEN, BLOOD 12 mg/dL (7-18)
[2018-02-27] MEDS ORDERED: PALIPERIDONE 3 MG ER TABLET PO PRN (14:00)
[2018-02-27] MEDS ORDERED: PALIPERIDONE PALMITATE 234 MG/1.5 ML SYRINGE IM ONE (14:00)
[2018-02-27 16:35] VITALS: BP 112/64
[2018-02-27] MEDS: PALIPERIDONE 1.5 MG ER TABLET PO SCH (20:34)
[2018-02-27] MEDS: DiphenhydrAMINE HCL 25 MG CAPSULE PO SCH (20:34)
[2018-02-28 05:39] VITALS: BP 108/60
[2018-02-28] MEDS: NALTREXONE HCL 50 MG TABLET PO SCH (09:14)
[2018-02-28] MEDS: TRIHEXYPHENIDYL HCL 5 MG TABLET PO SCH ×2 (09:14→16:36)
[2018-02-28] MEDS: NICOTINE 21 MG/24 HOUR PATCH TD SCH (09:14)
[2018-02-28 09:15] VITALS: BP 111/60
[2018-02-28 16:16] VITALS: BP 126/84
[2018-02-28] MEDS: HydrOXYzine PAMOATE 25 MG CAPSULE PO PRN (18:01)
[2018-02-28] MEDS: DiphenhydrAMINE HCL 25 MG CAPSULE PO SCH (20:35)
[2018-02-28] MEDS: PALIPERIDONE 1.5 MG ER TABLET PO SCH (20:35)
[2018-03-01 01:25] VITALS: BP 113/64
[2018-03-01] MEDS: HydrOXYzine PAMOATE 25 MG CAPSULE PO PRN (04:09)
[2018-03-01 08:00] VITALS: BP 118/74
[2018-03-01] MEDS: NICOTINE 21 MG/24 HOUR PATCH TD SCH (08:17)
[2018-03-01] MEDS: TRIHEXYPHENIDYL HCL 5 MG TABLET PO SCH ×2 (08:17→18:45)
[2018-03-01] MEDS: NALTREXONE HCL 50 MG TABLET PO SCH (08:17)
[2018-03-01] MEDS ORDERED: MAG HYDROX/AL HYDROX/SIMETH ES 30 ML SUSPENSION UDCUP PO PRN (13:30)
[2018-03-01] MEDS ORDERED: ACETAMINOPHEN 325 MG TABLET PO PRN (13:30)
[2018-03-01] MEDS ORDERED: HydrOXYzine PAMOATE 50 MG CAPSULE PO PRN (13:30)
[2018-03-01] MEDS ORDERED: PROMETHAZINE HCL 25 MG TABLET PO PRN (13:30)
[2018-03-01] MEDS ORDERED: GuaiFENesin/D-METHORPHAN [SUGAR-FREE] 200-20MG/10 ML SYRUP UDCUP PO PRN (13:30)
[2018-03-01] MEDS ORDERED: LOPERAMIDE HCL 2 MG CAPSULE PO PRN (13:30)
[2018-03-01] MEDS ORDERED: MAGNESIUM HYDROXIDE SUSPENSION 30 ML UDCUP PO PRN (13:30)
[2018-03-01 16:35] VITALS: BP 121/75
[2018-03-01] MEDS: THIAMINE HCL 100 MG TABLET PO SCH (17:52)
[2018-03-01] MEDS: DiphenhydrAMINE HCL 25 MG CAPSULE PO SCH (22:06)
[2018-03-02 02:25] VITALS: BP 109/62
[2018-03-02 05:00] VITALS: BP 124/79
[2018-03-02] MEDS: HydrOXYzine PAMOATE 25 MG CAPSULE PO PRN (05:41)
[2018-03-02 08:27] VITALS: BP 118/62
[2018-03-02] MEDS ORDERED: BISACODYL 5 MG EC TABLET PO PRN (08:45)
[2018-03-02] MEDS ORDERED: MULTIVITAMINS WITH MINERALS, THERAPEUTIC TABLET PO SCH (09:00)
[2018-03-02] MEDS ORDERED: FOLIC ACID 1 MG TABLET PO SCH (09:00)
[2018-03-02] MEDS: NALTREXONE HCL 50 MG TABLET PO SCH (09:06)
[2018-03-02] MEDS: TRIHEXYPHENIDYL HCL 5 MG TABLET PO SCH (09:06)
[2018-03-02] MEDS: THIAMINE HCL 100 MG TABLET PO SCH (09:06)
[2018-03-02] MEDS: NICOTINE 21 MG/24 HOUR PATCH TD SCH (09:06)
[2018-03-02] MEDS ORDERED: TRIH5TAB2 PO ×2 (11:42→15:56)
[2018-03-02] MEDS ORDERED: DIPH50 PO (11:43)
[2018-03-02] MEDS ORDERED: PALI156D IM ×2 (11:45→15:56)
[2018-03-02] MEDS ORDERED: THIA100T67 PO (11:55)
[2018-03-02] MEDS ORDERED: NICO-802 TD (11:55)
[2018-03-02] MEDS ORDERED: MULT-1239 PO (11:56)
[2018-03-02] MEDS ORDERED: FOLI1 PO (11:56)
[2018-03-02] MEDS ORDERED: NALT50TA6 PO (11:57)
[2018-03-02] MEDS ORDERED: DIPH25 PO (15:56)
[2018-03-02] MEDS ORDERED: NALT50TA PO (15:56)
[2018-03-03] MEDS ORDERED: PALIPERIDONE PALMITATE 156 MG/ML SYRINGE IM ONE ×2 (09:00)
== END 2018-03-02 12:35 | disposition home or self-care (01) | DRG 885 ==
LOC: B2X 16:30
PROVIDERS: ADMIT Psychiatry & Neurology Psychiatry; ATTEND Psychiatry & Neurology Psychiatry
DX: F25.0 Schizoaffective disorder, bipolar type (principal); E44.1 Mild protein-calorie malnutrition; R45.851 Suicidal ideations; F17.200 Nicotine dependence, unspecified, uncomplicated; F12.10 Cannabis abuse, uncomplicated; J45.909 Unspecified asthma, uncomplicated; K59.00 Constipation, unspecified; B19.20 Unspecified viral hepatitis C without hepatic coma; D64.9 Anemia, unspecified; I10 Essential (primary) hypertension; Z68.25 Body mass index [BMI] 25.0-25.9, adult
CPT/HCPCS: 83036; 84439; 84443

== ENCOUNTER 2018-12-15 00:45 | Inpatient (IN) | payer MEDICARE, OTHER ==
[~2018-12-15] VITALS: Ht 167.6 cm; Wt 71.5 kg
[~2018-12-15 00:45] MED LIST changes: +ATOM25 PO; +PALI117D IM; -PALI234D IM; +TRIH2TAB3 PO; -TRIH5TAB2 PO
[2018-12-15 01:45] VITALS: BP 113/62
[2018-12-15] MEDS ORDERED: PNEUMOCOCCAL VACCINE POLYVALENT 0.5 ML VIAL [PPSV23] IM ONE (06:30)
[2018-12-15] MEDS ORDERED: -PHARMACY VACCINE NOTE- MISC ONE (06:30)
[2018-12-15 08:00] VITALS: BP 113/58
[2018-12-15] MEDS ORDERED: CloNIDine HCL 0.1 MG TABLET PO PRN (14:00)
[2018-12-15] MEDS ORDERED: LOPERAMIDE HCL 2 MG CAPSULE PO PRN (14:00)
[2018-12-15] MEDS ORDERED: MAG HYDROX/AL HYDROX/SIMETH ES 30 ML SUSPENSION UDCUP PO PRN (14:00)
[2018-12-15] MEDS ORDERED: DOCUSATE SODIUM 100 MG CAPSULE PO PRN (14:00)
[2018-12-15] MEDS ORDERED: MAGNESIUM HYDROXIDE SUSPENSION 30 ML UDCUP PO PRN (14:00)
[2018-12-15] MEDS ORDERED: ACETAMINOPHEN 325 MG TABLET PO PRN (14:00)
[2018-12-15] MEDS ORDERED: GuaiFENesin/D-METHORPHAN [SUGAR-FREE] 200-20MG/10 ML SYRUP UDCUP PO PRN (14:00)
[2018-12-15] MEDS ORDERED: PETROLATUM,WHITE 28 GM JELLY TP PRN (14:00)
[2018-12-15] MEDS ORDERED: ALBUTEROL SULFATE HFA 90 MCG/PUFF 8 GM INHALER IH PRN (14:00)
[2018-12-15] MEDS ORDERED: IBUPROFEN 400 MG TABLET PO PRN (14:00)
[2018-12-15] MEDS ORDERED: ONDANSETRON HCL 4 MG TABLET PO PRN (14:00)
[2018-12-15] MEDS ORDERED: NICOTINE 14 MG/24 HOUR PATCH TD PRN (14:00)
[2018-12-15 17:00] VITALS: BP 106/55
[2018-12-15] MEDS: LORazepam 2 MG TABLET PO PRN (17:23)
[2018-12-15] MEDS: ZOLPIDEM TARTRATE 10 MG TABLET PO PRN (22:10)
[2018-12-16 01:07] VITALS: BP 119/69
[2018-12-16] MEDS: LORazepam 2 MG TABLET PO PRN ×5 (01:11→21:46)
[2018-12-16 07:23] LABS: BASOPHILS % (AUTO) 0.7 % (0.0-2.0); EOSINOPHILS % (AUTO) 11.2 % (1.0-6.0); HEMATOCRIT 40.9 % (41-53); LYMPHOCYTES # (AUTO) 2.3 K/uL (1.0-4.8); LYMPHOCYTES % (AUTO) 50.1 % (22.0-44.0); MEAN CORPUSCULAR HEMOGLOBIN 26.9 pg (26.0-34.0); MEAN CORPUSCULAR HGB CONC 31.7 G/dL (31.0-37.0); MEAN CORPUSCULAR VOLUME 85 fL (80-100); MONOCYTES # (AUTO) 0.5 K/uL (0.1-1.0); MONOCYTES % (AUTO) 10.8 % (2.0-9.0); NEUTROPHILS # (AUTO) 1.3 K/uL (1.8-7.7); NEUTROPHILS % (AUTO) 27.2 % (40.0-70.0); PLATELET COUNT (AUTO) 235 K/uL (150-450); RED BLOOD CELL COUNT(AUTO) 4.82 MIL/uL (4.50-5.90); RED CELL DISTRIBUTION WIDTH 14.4 % (11.5-14.5)
[2018-12-16 07:59] LABS: ALANINE AMINOTRANSFERASE 17 U/L (12-78); ALBUMIN 2.9 g/dL (3.4-5.0); ALKALINE PHOSPHATASE 83 U/L (46-116); ANION GAP 7 mmol/L (8-16); ASPARTATE AMINOTRANSFERASE 10 U/L (15-37); BILIRUBIN,TOTAL 0.2 mg/dL (0.1-1.0); CALCIUM, TOTAL 8.5 mg/dL (8.8-10.5); CARBON DIOXIDE 29 mmol/L (22-29); CHLORIDE 108 mmol/L (98-107); CHOL/HDL RATIO 2.8 (4.2-7.3); CHOLESTEROL 129 mg/dL (131-200); CREATININE 0.73 mg/dL (0.60-1.30); FREE T4 (FREE THYROXINE) 1.05 ng/dL (0.76-1.46); GLOMERULAR FILTR. RATE CALC > 60 mL/min (>60); GLUCOSE,RANDOM 104 mg/dL (70-110); HDL CHOLESTEROL 46 mg/dL (40-60); LDL CHOL (CALC.) 74 mg/dL (0-130); POTASSIUM 4.1 mmol/L (3.5-5.1); SODIUM SERUM 144 mmol/L (136-145); TOTAL PROTEIN, SERUM 5.3 g/dL (6.4-8.2); TRIGLYCERIDES 44 mg/dL (15-150); UREA NITROGEN, BLOOD 12 mg/dL (7-18)
[2018-12-16 08:19] LABS: HEMOGLOBIN A1C 4.8 % (4.5-6.2)
[2018-12-16 08:50] VITALS: BP 100/65
[2018-12-16 16:26] VITALS: BP 112/68
[2018-12-16] MEDS: ZOLPIDEM TARTRATE 10 MG TABLET PO PRN (21:46)
[2018-12-17 00:48] VITALS: BP 110/68
[2018-12-17 08:34] VITALS: BP 107/60
[2018-12-17 12:46] VITALS: BP 120/64
[2018-12-17] MEDS: LORazepam 2 MG TABLET PO PRN ×2 (12:46→16:54)
[2018-12-17 17:07] VITALS: BP 108/60
[2018-12-17] MEDS: ZOLPIDEM TARTRATE 10 MG TABLET PO PRN (20:46)
[2018-12-17] MEDS: RisperiDONE 2 MG TABLET PO SCH (21:31)
[2018-12-18 00:07] VITALS: BP 120/81
[2018-12-18] MEDS: LORazepam 2 MG TABLET PO PRN ×4 (04:06→20:35)
[2018-12-18 09:00] VITALS: BP 122/60
[2018-12-18] MEDS: TRIHEXYPHENIDYL HCL 2 MG TABLET PO SCH ×3 (10:36→16:27)
[2018-12-18] MEDS ORDERED: CYANOCOBALAMIN 1,000 MCG/ML VIAL IM ONE (14:45)
[2018-12-18] MEDS ORDERED: GuaiFENesin/D-METHORPHAN [SUGAR-FREE] 200-20MG/10 ML SYRUP UDCUP PO PRN (14:45)
[2018-12-18] MEDS ORDERED: HydrOXYzine PAMOATE 50 MG CAPSULE PO PRN (14:45)
[2018-12-18] MEDS: THIAMINE HCL 100 MG TABLET PO SCH (16:27)
[2018-12-18 16:58] VITALS: BP 109/68
[2018-12-18] MEDS: ZOLPIDEM TARTRATE 10 MG TABLET PO PRN (20:36)
[2018-12-18] MEDS: RisperiDONE 2 MG TABLET PO SCH ×2 (20:36→20:37)
[2018-12-19 01:32] VITALS: BP 102/52
[2018-12-19] MEDS: HALOPERIDOL 5 MG TABLET PO PRN (01:55)
[2018-12-19 06:45] VITALS: BP 101/58
[2018-12-19] MEDS: LORazepam 2 MG TABLET PO PRN ×2 (06:48→16:19)
[2018-12-19] MEDS: TRIHEXYPHENIDYL HCL 2 MG TABLET PO SCH ×3 (09:00→16:19)
[2018-12-19 09:25] VITALS: BP 109/66
[2018-12-19] MEDS: MULTIVITAMINS WITH MINERALS, THERAPEUTIC TABLET PO SCH (09:38)
[2018-12-19] MEDS: FOLIC ACID 1 MG TABLET PO SCH (09:38)
[2018-12-19] MEDS: THIAMINE HCL 100 MG TABLET PO SCH ×2 (10:19→16:19)
[2018-12-19] MEDS: NALTREXONE HCL 50 MG TABLET PO SCH (10:19)
[2018-12-19] MEDS ORDERED: PALIPERIDONE PALMITATE 234 MG/1.5 ML SYRINGE IM ONE (14:45)
[2018-12-19 16:39] VITALS: BP 118/72
[2018-12-20] MEDS: HALOPERIDOL 5 MG TABLET PO PRN (00:18)
[2018-12-20 00:45] VITALS: BP 103/51
[2018-12-20] MEDS: ZOLPIDEM TARTRATE 10 MG TABLET PO PRN (01:17)
[2018-12-20] MEDS: FOLIC ACID 1 MG TABLET PO SCH (08:51)
[2018-12-20] MEDS: TRIHEXYPHENIDYL HCL 2 MG TABLET PO SCH ×3 (08:51→17:33)
[2018-12-20] MEDS: MULTIVITAMINS WITH MINERALS, THERAPEUTIC TABLET PO SCH (08:51)
[2018-12-20] MEDS: THIAMINE HCL 100 MG TABLET PO SCH ×2 (08:51→17:33)
[2018-12-20] MEDS: NALTREXONE HCL 50 MG TABLET PO SCH (08:52)
[2018-12-20] MEDS: LORazepam 2 MG TABLET PO PRN (13:43)
[2018-12-20] MEDS ORDERED: DiphenhydrAMINE HCL 50 MG/ML VIAL IM ONE (16:15)
[2018-12-20] MEDS ORDERED: HALOPERIDOL LACTATE 5 MG/ML VIAL IM ONE (16:15)
[2018-12-20] MEDS ORDERED: DiphenhydrAMINE HCL 50 MG/ML VIAL ONE (16:20)
[2018-12-20] MEDS ORDERED: HALOPERIDOL LACTATE 5 MG/ML VIAL ONE (16:20)
[2018-12-20 16:46] VITALS: BP 115/64
[2018-12-21 01:19] VITALS: BP 104/65
[2018-12-21] MEDS: LORazepam 2 MG TABLET PO PRN (03:42)
[2018-12-21] MEDS: HALOPERIDOL 5 MG TABLET PO PRN (03:42)
[2018-12-21 08:06] VITALS: BP 103/49
[2018-12-21 09:50] LABS: APPEARANCE,URINE CLEAR (CLEAR); BILIRUBIN,URINE NEGATIVE (NEGATIVE); GLUCOSE, URINE (UA) NEGATIVE (NEGATIVE); KETONES,URINE NEGATIVE (NEGATIVE); LEUKOCYTE ESTERASE ,URINE NEGATIVE (NEGATIVE); NITRATE,URINE NEGATIVE (NEGATIVE); OCCULT BLOOD,URINE NEGATIVE (NEGATIVE); PH,URINE 6.5 (5.0-8.0); PROTEIN,URINE NEGATIVE (NEGATIVE); UROBILINOGEN,URINE 0.2 mg/dL (<=1.0)
== END 2018-12-21 06:50 | disposition home or self-care (01) | DRG 885 ==
LOC: B2S 01:00 → B2X 12-21 06:32
PROVIDERS: ADMIT Psychiatry & Neurology Child & Adolescent Psychiatry; ATTEND Psychiatry & Neurology Psychiatry
DX: F25.0 Schizoaffective disorder, bipolar type (principal); R45.851 Suicidal ideations; F10.10 Alcohol abuse, uncomplicated; G40.909 Epilepsy, unspecified, not intractable, without status epilepticus; I10 Essential (primary) hypertension; E11.9 Type 2 diabetes mellitus without complications; J44.9 Chronic obstructive pulmonary disease, unspecified; D64.9 Anemia, unspecified; B18.2 Chronic viral hepatitis C; F12.90 Cannabis use, unspecified, uncomplicated; Z59.0 Homelessness; Z91.14 Patient's other noncompliance with medication regimen
CPT/HCPCS: 83036; 84439; 84443; J1200; J1630; J3420

== ENCOUNTER 2018-12-21 08:37 | Inpatient (IN) | payer MEDICARE ==
[~2018-12-21] VITALS: Ht 167.6 cm; Wt 73.9 kg
[2018-12-21] MEDS ORDERED: HydrOXYzine PAMOATE 50 MG CAPSULE PO PRN (09:00)
[2018-12-21] MEDS ORDERED: HALOPERIDOL 5 MG TABLET PO PRN (09:00)
[2018-12-21] MEDS: MULTIVITAMINS WITH MINERALS, THERAPEUTIC TABLET PO SCH (10:11)
[2018-12-21] MEDS: NALTREXONE HCL 50 MG TABLET PO SCH (10:11)
[2018-12-21] MEDS: FOLIC ACID 1 MG TABLET PO SCH (10:11)
[2018-12-21] MEDS: TRIHEXYPHENIDYL HCL 2 MG TABLET PO SCH ×2 (10:11→16:31)
[2018-12-21] MEDS: THIAMINE HCL 100 MG TABLET PO SCH ×2 (10:12→16:31)
[2018-12-21 13:04] VITALS: BP 103/49
[2018-12-21] MEDS: LORazepam 2 MG TABLET PO PRN (13:42)
[2018-12-21] MEDS ORDERED: MAGNESIUM HYDROXIDE SUSPENSION 30 ML UDCUP PO PRN (15:15)
[2018-12-21] MEDS ORDERED: LOPERAMIDE HCL 2 MG CAPSULE PO PRN (15:15)
[2018-12-21] MEDS ORDERED: ACETAMINOPHEN 325 MG TABLET PO PRN (15:15)
[2018-12-21] MEDS ORDERED: MAG HYDROX/AL HYDROX/SIMETH ES 30 ML SUSPENSION UDCUP PO PRN (15:15)
[2018-12-21] MEDS ORDERED: PROMETHAZINE HCL 25 MG TABLET PO PRN (15:15)
[2018-12-21] MEDS: ZOLPIDEM TARTRATE 10 MG TABLET PO PRN (21:03)
[2018-12-21] MEDS ORDERED: HYDROCORTISONE 1% 30 GM CREAM TP PRN (21:15)
[2018-12-22 08:05] VITALS: BP 111/79
[2018-12-22] MEDS: TRIHEXYPHENIDYL HCL 2 MG TABLET PO SCH ×2 (08:20→16:54)
[2018-12-22] MEDS: THIAMINE HCL 100 MG TABLET PO SCH ×2 (08:20→16:54)
[2018-12-22] MEDS: LORazepam 2 MG TABLET PO PRN ×3 (08:20→19:18)
[2018-12-22] MEDS: MULTIVITAMINS WITH MINERALS, THERAPEUTIC TABLET PO SCH (08:20)
[2018-12-22] MEDS: NALTREXONE HCL 50 MG TABLET PO SCH (08:20)
[2018-12-22] MEDS: FOLIC ACID 1 MG TABLET PO SCH (08:20)
[2018-12-22] MEDS: NICOTINE 14 MG/24 HOUR PATCH TD SCH (11:52)
[2018-12-22 16:01] VITALS: BP 115/63
[2018-12-23] MEDS: ZOLPIDEM TARTRATE 10 MG TABLET PO PRN ×2 (00:26→20:31)
[2018-12-23 06:08] VITALS: BP 118/68
[2018-12-23] MEDS ORDERED: PALIPERIDONE PALMITATE 156 MG/ML SYRINGE IM ONE (09:00)
[2018-12-23] MEDS: NALTREXONE HCL 50 MG TABLET PO SCH (09:14)
[2018-12-23] MEDS: MULTIVITAMINS WITH MINERALS, THERAPEUTIC TABLET PO SCH (09:14)
[2018-12-23] MEDS: FOLIC ACID 1 MG TABLET PO SCH (09:14)
[2018-12-23] MEDS: THIAMINE HCL 100 MG TABLET PO SCH ×2 (09:14→16:08)
[2018-12-23] MEDS: NICOTINE 14 MG/24 HOUR PATCH TD SCH (09:14)
[2018-12-23] MEDS: TRIHEXYPHENIDYL HCL 2 MG TABLET PO SCH ×2 (09:14→16:08)
[2018-12-23] MEDS: LORazepam 2 MG TABLET PO PRN (16:08)
[2018-12-23 16:09] VITALS: BP 123/76
[2018-12-23] MEDS: GuaiFENesin/D-METHORPHAN [SUGAR-FREE] 200-20MG/10 ML SYRUP UDCUP PO PRN (18:49)
[2018-12-24] MEDS: LORazepam 2 MG TABLET PO PRN ×2 (07:18→16:16)
[2018-12-24] MEDS: MULTIVITAMINS WITH MINERALS, THERAPEUTIC TABLET PO SCH (08:46)
[2018-12-24] MEDS: NALTREXONE HCL 50 MG TABLET PO SCH (08:47)
[2018-12-24] MEDS: TRIHEXYPHENIDYL HCL 2 MG TABLET PO SCH ×2 (08:47→16:17)
[2018-12-24] MEDS: FOLIC ACID 1 MG TABLET PO SCH (08:47)
[2018-12-24] MEDS: THIAMINE HCL 100 MG TABLET PO SCH ×2 (08:47→16:17)
[2018-12-24] MEDS: NICOTINE 14 MG/24 HOUR PATCH TD SCH (08:50)
[2018-12-24] MEDS: GuaiFENesin/D-METHORPHAN [SUGAR-FREE] 200-20MG/10 ML SYRUP UDCUP PO PRN ×2 (14:34→19:07)
[2018-12-24 16:00] VITALS: BP 112/60
[2018-12-24] MEDS: ZOLPIDEM TARTRATE 10 MG TABLET PO PRN (21:35)
[2018-12-25 02:20] VITALS: BP 111/64
[2018-12-25 08:00] VITALS: BP 110/60
[2018-12-25] MEDS: TRIHEXYPHENIDYL HCL 2 MG TABLET PO SCH ×2 (09:03→16:38)
[2018-12-25] MEDS: MULTIVITAMINS WITH MINERALS, THERAPEUTIC TABLET PO SCH (09:03)
[2018-12-25] MEDS: NALTREXONE HCL 50 MG TABLET PO SCH (09:03)
[2018-12-25] MEDS: FOLIC ACID 1 MG TABLET PO SCH (09:03)
[2018-12-25] MEDS: THIAMINE HCL 100 MG TABLET PO SCH ×2 (09:03→16:38)
[2018-12-25] MEDS: NICOTINE 14 MG/24 HOUR PATCH TD SCH (09:05)
[2018-12-25 16:02] VITALS: BP 118/64
[2018-12-25] MEDS: ZOLPIDEM TARTRATE 10 MG TABLET PO PRN (21:54)
[2018-12-26 01:25] VITALS: BP 124/63
[2018-12-26] MEDS: THIAMINE HCL 100 MG TABLET PO SCH ×2 (08:07→16:46)
[2018-12-26] MEDS: FOLIC ACID 1 MG TABLET PO SCH (08:07)
[2018-12-26] MEDS: NICOTINE 14 MG/24 HOUR PATCH TD SCH (08:08)
[2018-12-26] MEDS: TRIHEXYPHENIDYL HCL 2 MG TABLET PO SCH ×2 (08:08→16:46)
[2018-12-26] MEDS: NALTREXONE HCL 50 MG TABLET PO SCH (08:08)
[2018-12-26] MEDS: MULTIVITAMINS WITH MINERALS, THERAPEUTIC TABLET PO SCH (08:08)
[2018-12-26 08:25] VITALS: BP 101/50
[2018-12-26 16:25] VITALS: BP 109/74
[2018-12-26] MEDS: GuaiFENesin/D-METHORPHAN [SUGAR-FREE] 200-20MG/10 ML SYRUP UDCUP PO PRN (20:50)
[2018-12-26] MEDS: ZOLPIDEM TARTRATE 10 MG TABLET PO PRN (23:31)
[2018-12-27] VITALS: BP 112/69
[2018-12-27 08:00] VITALS: BP 101/60
[2018-12-27] MEDS: MULTIVITAMINS WITH MINERALS, THERAPEUTIC TABLET PO SCH (08:30)
[2018-12-27] MEDS: THIAMINE HCL 100 MG TABLET PO SCH ×2 (08:30→16:16)
[2018-12-27] MEDS: NALTREXONE HCL 50 MG TABLET PO SCH (08:30)
[2018-12-27] MEDS: TRIHEXYPHENIDYL HCL 2 MG TABLET PO SCH ×2 (08:30→16:16)
[2018-12-27] MEDS: FOLIC ACID 1 MG TABLET PO SCH (08:31)
[2018-12-27] MEDS: NICOTINE 14 MG/24 HOUR PATCH TD SCH (08:38)
[2018-12-27] MEDS: LORazepam 2 MG TABLET PO PRN ×2 (12:02→16:51)
[2018-12-27] MEDS: ZOLPIDEM TARTRATE 10 MG TABLET PO PRN (21:14)
[2018-12-27] MEDS: GuaiFENesin/D-METHORPHAN [SUGAR-FREE] 200-20MG/10 ML SYRUP UDCUP PO PRN (21:14)
[2018-12-28 00:45] VITALS: BP 119/66
[2018-12-28] MEDS: LORazepam 2 MG TABLET PO PRN ×2 (00:50→09:40)
[2018-12-28 08:02] VITALS: BP 111/58
[2018-12-28] MEDS: NICOTINE 14 MG/24 HOUR PATCH TD SCH (08:43)
[2018-12-28] MEDS: NALTREXONE HCL 50 MG TABLET PO SCH (08:43)
[2018-12-28] MEDS: TRIHEXYPHENIDYL HCL 2 MG TABLET PO SCH ×2 (08:43→16:30)
[2018-12-28] MEDS: FOLIC ACID 1 MG TABLET PO SCH (08:43)
[2018-12-28] MEDS: THIAMINE HCL 100 MG TABLET PO SCH (08:43)
[2018-12-28] MEDS: MULTIVITAMINS WITH MINERALS, THERAPEUTIC TABLET PO SCH (08:43)
[2018-12-28] MEDS: GuaiFENesin/D-METHORPHAN [SUGAR-FREE] 200-20MG/10 ML SYRUP UDCUP PO PRN ×2 (09:40→16:13)
[2018-12-28 16:01] VITALS: BP 100/60
[2018-12-28 23:58] VITALS: BP 107/60
[2018-12-29] MEDS: LORazepam 2 MG TABLET PO PRN ×3 (00:08→16:40)
[2018-12-29 05:46] VITALS: BP 107/60
[2018-12-29] MEDS: NICOTINE 14 MG/24 HOUR PATCH TD SCH (08:27)
[2018-12-29] MEDS: NALTREXONE HCL 50 MG TABLET PO SCH (08:27)
[2018-12-29] MEDS: MULTIVITAMINS WITH MINERALS, THERAPEUTIC TABLET PO SCH (08:27)
[2018-12-29] MEDS: TRIHEXYPHENIDYL HCL 2 MG TABLET PO SCH ×2 (08:27→16:39)
[2018-12-29 08:29] VITALS: BP 109/60
[2018-12-29] MEDS: GuaiFENesin/D-METHORPHAN [SUGAR-FREE] 200-20MG/10 ML SYRUP UDCUP PO PRN ×2 (13:51→19:33)
[2018-12-29 15:59] VITALS: BP 97/55
[2018-12-29] MEDS: THIAMINE HCL 100 MG TABLET PO SCH (16:39)
[2018-12-29 20:28] VITALS: BP 107/58
[2018-12-29] MEDS: ZOLPIDEM TARTRATE 10 MG TABLET PO PRN (20:59)
[2018-12-30 04:05] VITALS: BP 113/61
[2018-12-30] MEDS: LORazepam 2 MG TABLET PO PRN ×4 (05:03→22:11)
[2018-12-30] MEDS: NICOTINE 14 MG/24 HOUR PATCH TD SCH (08:16)
[2018-12-30] MEDS: ATOMOXETINE HCL 25 MG CAPSULE PO SCH (08:16)
[2018-12-30] MEDS: THIAMINE HCL 100 MG TABLET PO SCH ×2 (08:16→16:02)
[2018-12-30] MEDS: MULTIVITAMINS WITH MINERALS, THERAPEUTIC TABLET PO SCH (08:16)
[2018-12-30] MEDS: TRIHEXYPHENIDYL HCL 2 MG TABLET PO SCH ×2 (08:16→16:02)
[2018-12-30 08:30] VITALS: BP 102/63
[2018-12-30] MEDS: NALTREXONE HCL 50 MG TABLET PO SCH (08:39)
[2018-12-30] MEDS: FOLIC ACID 1 MG TABLET PO SCH (08:39)
[2018-12-30] MEDS: GuaiFENesin/D-METHORPHAN [SUGAR-FREE] 200-20MG/10 ML SYRUP UDCUP PO PRN (09:19)
[2018-12-30 16:04] VITALS: BP 114/60
[2018-12-31 01:58] VITALS: BP 111/60
[2018-12-31] MEDS: ZOLPIDEM TARTRATE 10 MG TABLET PO PRN (01:58)
[2018-12-31] MEDS: LORazepam 2 MG TABLET PO PRN ×2 (05:37→10:00)
[2018-12-31 08:17] VITALS: BP 111/66
[2018-12-31] MEDS: NALTREXONE HCL 50 MG TABLET PO SCH (08:22)
[2018-12-31] MEDS: NICOTINE 14 MG/24 HOUR PATCH TD SCH (08:22)
[2018-12-31] MEDS: ATOMOXETINE HCL 25 MG CAPSULE PO SCH (08:22)
[2018-12-31] MEDS: MULTIVITAMINS WITH MINERALS, THERAPEUTIC TABLET PO SCH (08:22)
[2018-12-31] MEDS: FOLIC ACID 1 MG TABLET PO SCH (08:22)
[2018-12-31] MEDS: TRIHEXYPHENIDYL HCL 2 MG TABLET PO SCH ×2 (08:22→16:15)
[2018-12-31] MEDS: THIAMINE HCL 100 MG TABLET PO SCH ×2 (08:22→16:15)
[2018-12-31] MEDS: GuaiFENesin/D-METHORPHAN [SUGAR-FREE] 200-20MG/10 ML SYRUP UDCUP PO PRN ×2 (10:28→16:15)
[2018-12-31 16:18] VITALS: BP 107/60
[2019-01-01] MEDS: LORazepam 2 MG TABLET PO PRN ×2 (03:26→08:47)
[2019-01-01 05:26] VITALS: BP 111/82
[2019-01-01 08:13] VITALS: BP 103/62
[2019-01-01] MEDS: THIAMINE HCL 100 MG TABLET PO SCH (08:48)
[2019-01-01] MEDS: TRIHEXYPHENIDYL HCL 2 MG TABLET PO SCH (08:48)
[2019-01-01] MEDS: NALTREXONE HCL 50 MG TABLET PO SCH (08:48)
[2019-01-01] MEDS: MULTIVITAMINS WITH MINERALS, THERAPEUTIC TABLET PO SCH (08:48)
[2019-01-01] MEDS: FOLIC ACID 1 MG TABLET PO SCH (08:48)
[2019-01-01] MEDS: ATOMOXETINE HCL 25 MG CAPSULE PO SCH (08:48)
[2019-01-01] MEDS: NICOTINE 14 MG/24 HOUR PATCH TD SCH (08:50)
[2019-01-01] MEDS ORDERED: TRIH2TAB3 PO (09:57)
[2019-01-01] MEDS ORDERED: PALI117D IM (12:33)
== END 2019-01-01 13:05 | disposition home or self-care (01) | DRG 885 ==
LOC: B2X 09:08
PROVIDERS: ADMIT Psychiatry & Neurology Psychiatry; ATTEND Psychiatry & Neurology Psychiatry
DX: F25.0 Schizoaffective disorder, bipolar type (principal); B18.2 Chronic viral hepatitis C; J44.9 Chronic obstructive pulmonary disease, unspecified; E11.9 Type 2 diabetes mellitus without complications; I10 Essential (primary) hypertension; F10.10 Alcohol abuse, uncomplicated; F19.10 Other psychoactive substance abuse, uncomplicated; Z71.41 Alcohol abuse counseling and surveillance of alcoholic; Z71.51 Drug abuse counseling and surveillance of drug abuser; F17.210 Nicotine dependence, cigarettes, uncomplicated; F60.0 Paranoid personality disorder; F90.9 Attention-deficit hyperactivity disorder, unspecified type; K59.00 Constipation, unspecified; Z65.3 Problems related to other legal circumstances; Z91.19 Patient's noncompliance with other medical treatment and regimen

== ENCOUNTER 2019-02-21 22:10 | Inpatient (IN) | payer MEDICARE ==
[~2019-02-21] VITALS: Ht 167.6 cm; Wt 73.0 kg
[2019-02-22 00:20] VITALS: BP 148/98
[2019-02-22] MEDS ORDERED: PETROLATUM,WHITE 28 GM JELLY TP PRN (06:30)
[2019-02-22] MEDS ORDERED: ACETAMINOPHEN 325 MG TABLET PO PRN (06:30)
[2019-02-22] MEDS ORDERED: GuaiFENesin/D-METHORPHAN [SUGAR-FREE] 200-20MG/10 ML SYRUP UDCUP PO PRN ×2 (06:30→15:30)
[2019-02-22] MEDS ORDERED: ONDANSETRON HCL 4 MG TABLET PO PRN (06:30)
[2019-02-22] MEDS ORDERED: DOCUSATE SODIUM 100 MG CAPSULE PO PRN (06:30)
[2019-02-22] MEDS ORDERED: IBUPROFEN 400 MG TABLET PO PRN (06:30)
[2019-02-22] MEDS ORDERED: NICOTINE 14 MG/24 HOUR PATCH TD PRN (06:30)
[2019-02-22] MEDS ORDERED: MAG HYDROX/AL HYDROX/SIMETH ES 30 ML SUSPENSION UDCUP PO PRN (06:30)
[2019-02-22] MEDS ORDERED: CloNIDine HCL 0.1 MG TABLET PO PRN (06:30)
[2019-02-22] MEDS ORDERED: LOPERAMIDE HCL 2 MG CAPSULE PO PRN (06:30)
[2019-02-22] MEDS ORDERED: ALBUTEROL SULFATE HFA 90 MCG/PUFF 8 GM INHALER IH PRN (06:30)
[2019-02-22] MEDS ORDERED: MAGNESIUM HYDROXIDE SUSPENSION 30 ML UDCUP PO PRN (06:30)
[2019-02-22] MEDS: ATOMOXETINE HCL 25 MG CAPSULE PO SCH (08:34)
[2019-02-22] MEDS: NALTREXONE HCL 50 MG TABLET PO SCH (08:34)
[2019-02-22] MEDS: TRIHEXYPHENIDYL HCL 2 MG TABLET PO SCH ×2 (08:35→16:56)
[2019-02-22] MEDS ORDERED: HydrOXYzine PAMOATE 50 MG CAPSULE PO PRN (15:30)
[2019-02-22 16:28] VITALS: BP 105/62
[2019-02-22] MEDS: THIAMINE HCL 100 MG TABLET PO SCH (16:56)
[2019-02-22] MEDS: OLANZapine 5 MG RAPDIS TABLET PO PRN (16:56)
[2019-02-22] MEDS: LORazepam 2 MG TABLET PO PRN (16:58)
[2019-02-22] MEDS ORDERED: PALIPERIDONE PALMITATE 234 MG/1.5 ML SYRINGE IM ONE (17:15)
[2019-02-23 08:00] VITALS: BP 110/67
[2019-02-23 08:00] LABS: BASOPHILS % (AUTO) 0.4 % (0.0-2.0); EOSINOPHILS % (AUTO) 10.6 % (1.0-6.0); HEMATOCRIT 46.5 % (41-53); HEMOGLOBIN 14.7 g/dL (13.5-17.5); LYMPHOCYTES # (AUTO) 2.4 K/uL (1.0-4.8); LYMPHOCYTES % (AUTO) 47.8 % (22.0-44.0); MEAN CORPUSCULAR HEMOGLOBIN 27.9 pg (26.0-34.0); MEAN CORPUSCULAR HGB CONC 31.7 G/dL (31.0-37.0); MEAN CORPUSCULAR VOLUME 88 fL (80-100); MONOCYTES # (AUTO) 0.5 K/uL (0.1-1.0); MONOCYTES % (AUTO) 9.5 % (2.0-9.0); NEUTROPHILS # (AUTO) 1.6 K/uL (1.8-7.7); NEUTROPHILS % (AUTO) 31.7 % (40.0-70.0); PLATELET COUNT (AUTO) 254 K/uL (150-450); RED BLOOD CELL COUNT(AUTO) 5.29 MIL/uL (4.50-5.90); RED CELL DISTRIBUTION WIDTH 14.9 % (11.5-14.5)
[2019-02-23 08:20] LABS: HEMOGLOBIN A1C 5.3 % (4.5-6.2)
[2019-02-23] MEDS: FOLIC ACID 1 MG TABLET PO SCH (08:46)
[2019-02-23] MEDS: THIAMINE HCL 100 MG TABLET PO SCH ×2 (08:46→17:14)
[2019-02-23] MEDS: MULTIVITAMINS WITH MINERALS, THERAPEUTIC TABLET PO SCH (08:46)
[2019-02-23] MEDS: NALTREXONE HCL 50 MG TABLET PO SCH (08:46)
[2019-02-23] MEDS: LORazepam 2 MG TABLET PO PRN ×2 (08:47→17:14)
[2019-02-23] MEDS: ATOMOXETINE HCL 25 MG CAPSULE PO SCH (08:47)
[2019-02-23] MEDS: TRIHEXYPHENIDYL HCL 2 MG TABLET PO SCH ×2 (08:53→17:14)
[2019-02-23 09:02] LABS: CHOL/HDL RATIO 2.5 (4.2-7.3); THYROID STIMULATING HORMONE 0.42 uIU/mL (0.36-3.74)
[2019-02-23 16:59] VITALS: BP 124/65
[2019-02-23] MEDS: OLANZapine 5 MG RAPDIS TABLET PO PRN (17:15)
[2019-02-24 00:15] VITALS: BP 117/72
[2019-02-24 08:15] VITALS: BP 119/61
[2019-02-24] MEDS: NALTREXONE HCL 50 MG TABLET PO SCH (08:57)
[2019-02-24] MEDS: MULTIVITAMINS WITH MINERALS, THERAPEUTIC TABLET PO SCH (08:57)
[2019-02-24] MEDS: FOLIC ACID 1 MG TABLET PO SCH (08:57)
[2019-02-24] MEDS: THIAMINE HCL 100 MG TABLET PO SCH ×2 (08:57→16:04)
[2019-02-24] MEDS: TRIHEXYPHENIDYL HCL 2 MG TABLET PO SCH ×2 (08:57→16:04)
[2019-02-24] MEDS: ATOMOXETINE HCL 25 MG CAPSULE PO SCH (08:57)
[2019-02-24 16:04] VITALS: BP 119/75
[2019-02-24] MEDS: LORazepam 2 MG TABLET PO PRN (16:04)
[2019-02-24] MEDS: ZOLPIDEM TARTRATE 10 MG TABLET PO PRN (20:27)
[2019-02-25 01:08] VITALS: BP 129/67
[2019-02-25 08:11] VITALS: BP 118/66
[2019-02-25] MEDS: TRIHEXYPHENIDYL HCL 2 MG TABLET PO SCH ×2 (08:14→16:36)
[2019-02-25] MEDS: FOLIC ACID 1 MG TABLET PO SCH (08:14)
[2019-02-25] MEDS: NALTREXONE HCL 50 MG TABLET PO SCH (08:14)
[2019-02-25] MEDS: THIAMINE HCL 100 MG TABLET PO SCH ×2 (08:14→16:36)
[2019-02-25] MEDS: ATOMOXETINE HCL 25 MG CAPSULE PO SCH (08:14)
[2019-02-25] MEDS: MULTIVITAMINS WITH MINERALS, THERAPEUTIC TABLET PO SCH (08:14)
[2019-02-25] MEDS: LORazepam 2 MG TABLET PO PRN ×2 (10:08→16:47)
[2019-02-25 16:01] VITALS: BP 101/61
[2019-02-25] MEDS: ZOLPIDEM TARTRATE 10 MG TABLET PO PRN (20:31)
[2019-02-26] MEDS: LORazepam 2 MG TABLET PO PRN ×4 (00:38→20:41)
[2019-02-26 00:45] VITALS: BP 110/65
[2019-02-26] MEDS: ATOMOXETINE HCL 25 MG CAPSULE PO SCH (08:23)
[2019-02-26] MEDS: THIAMINE HCL 100 MG TABLET PO SCH ×2 (08:24→16:30)
[2019-02-26] MEDS: MULTIVITAMINS WITH MINERALS, THERAPEUTIC TABLET PO SCH (08:24)
[2019-02-26] MEDS: TRIHEXYPHENIDYL HCL 2 MG TABLET PO SCH ×2 (08:24→16:30)
[2019-02-26] MEDS: FOLIC ACID 1 MG TABLET PO SCH (08:24)
[2019-02-26] MEDS: NALTREXONE HCL 50 MG TABLET PO SCH (08:24)
[2019-02-26 08:45] VITALS: BP 114/64
[2019-02-26] MEDS ORDERED: PALIPERIDONE PALMITATE 156 MG/ML SYRINGE IM ONE (09:00)
[2019-02-26 16:08] VITALS: BP 113/61
[2019-02-26] MEDS: ZOLPIDEM TARTRATE 10 MG TABLET PO PRN (22:45)
[2019-02-27 02:30] VITALS: BP 117/72
[2019-02-27] MEDS: OLANZapine 5 MG RAPDIS TABLET PO PRN ×2 (06:01→15:41)
[2019-02-27] MEDS: LORazepam 2 MG TABLET PO PRN ×2 (06:01→15:41)
[2019-02-27 08:05] VITALS: BP 109/54
[2019-02-27] MEDS: ATOMOXETINE HCL 25 MG CAPSULE PO SCH (08:33)
[2019-02-27] MEDS: THIAMINE HCL 100 MG TABLET PO SCH ×2 (08:33→16:27)
[2019-02-27] MEDS: MULTIVITAMINS WITH MINERALS, THERAPEUTIC TABLET PO SCH (08:33)
[2019-02-27] MEDS: FOLIC ACID 1 MG TABLET PO SCH (08:33)
[2019-02-27] MEDS: NALTREXONE HCL 50 MG TABLET PO SCH (08:34)
[2019-02-27] MEDS: TRIHEXYPHENIDYL HCL 5 MG TABLET PO SCH ×2 (08:34→16:27)
[2019-02-27 16:33] VITALS: BP 107/59
[2019-02-28 00:15] VITALS: BP 102/62
[2019-02-28] MEDS: LORazepam 2 MG TABLET PO PRN ×4 (00:38→19:19)
[2019-02-28] MEDS: OLANZapine 5 MG RAPDIS TABLET PO PRN (06:08)
[2019-02-28 08:01] VITALS: BP 108/65
[2019-02-28] MEDS: ATOMOXETINE HCL 25 MG CAPSULE PO SCH (08:27)
[2019-02-28] MEDS: FOLIC ACID 1 MG TABLET PO SCH (08:28)
[2019-02-28] MEDS: THIAMINE HCL 100 MG TABLET PO SCH ×2 (08:28→16:42)
[2019-02-28] MEDS: TRIHEXYPHENIDYL HCL 5 MG TABLET PO SCH ×2 (08:28→16:42)
[2019-02-28] MEDS: NALTREXONE HCL 50 MG TABLET PO SCH (08:28)
[2019-02-28] MEDS: MULTIVITAMINS WITH MINERALS, THERAPEUTIC TABLET PO SCH (08:28)
[2019-02-28 16:05] VITALS: BP 110/67
[2019-02-28] MEDS: ZOLPIDEM TARTRATE 10 MG TABLET PO PRN (21:15)
[2019-03-01 00:30] VITALS: BP 108/63
[2019-03-01] MEDS: OLANZapine 5 MG RAPDIS TABLET PO PRN (01:00)
[2019-03-01] MEDS: LORazepam 2 MG TABLET PO PRN ×3 (01:00→20:12)
[2019-03-01 08:02] VITALS: BP 110/66
[2019-03-01 08:32] LABS: ANION GAP 5 mmol/L (8-16); CALCIUM, TOTAL 8.3 mg/dL (8.8-10.5); CARBON DIOXIDE 30 mmol/L (22-29); CHLORIDE 106 mmol/L (98-107); CREATININE 0.71 mg/dL (0.60-1.30); GLOMERULAR FILTR. RATE CALC > 60 mL/min (>60); GLUCOSE,RANDOM 78 mg/dL (70-110); POTASSIUM 3.9 mmol/L (3.5-5.1); SODIUM SERUM 141 mmol/L (136-145); UREA NITROGEN, BLOOD 10 mg/dL (7-18)
[2019-03-01] MEDS: FOLIC ACID 1 MG TABLET PO SCH (09:42)
[2019-03-01] MEDS: NALTREXONE HCL 50 MG TABLET PO SCH (09:42)
[2019-03-01] MEDS: TRIHEXYPHENIDYL HCL 5 MG TABLET PO SCH ×2 (09:42→16:18)
[2019-03-01] MEDS: MULTIVITAMINS WITH MINERALS, THERAPEUTIC TABLET PO SCH (09:42)
[2019-03-01] MEDS: THIAMINE HCL 100 MG TABLET PO SCH ×2 (09:44→16:18)
[2019-03-01] MEDS: ATOMOXETINE HCL 25 MG CAPSULE PO SCH (09:44)
[2019-03-01] MEDS ORDERED: NALT50TA PO (15:19)
[2019-03-01] MEDS ORDERED: ATOM25 PO (15:19)
[2019-03-01] MEDS ORDERED: TRIH5TAB2 PO (15:19)
[2019-03-02 06:26] VITALS: BP 102/66
[2019-03-02 08:02] VITALS: BP 109/68
[2019-03-02] MEDS: MULTIVITAMINS WITH MINERALS, THERAPEUTIC TABLET PO SCH (08:02)
[2019-03-02] MEDS: ATOMOXETINE HCL 25 MG CAPSULE PO SCH (08:03)
[2019-03-02] MEDS: NALTREXONE HCL 50 MG TABLET PO SCH (08:03)
[2019-03-02] MEDS: FOLIC ACID 1 MG TABLET PO SCH (08:03)
[2019-03-02] MEDS: THIAMINE HCL 100 MG TABLET PO SCH (08:04)
[2019-03-02] MEDS: TRIHEXYPHENIDYL HCL 5 MG TABLET PO SCH (08:05)
[2019-03-02] MEDS ORDERED: ATOM25 PO (08:39)
[2019-03-02] MEDS ORDERED: NALT50TA6 PO (08:45)
[2019-03-02] MEDS ORDERED: PALI117D IM (09:44)
== END 2019-03-02 13:30 | disposition home or self-care (01) | DRG 885 ==
LOC: B3A 22:32 → B2X 02-23 19:35
PROVIDERS: ADMIT Psychiatry & Neurology Psychiatry; ATTEND Psychiatry & Neurology Psychiatry
DX: F25.0 Schizoaffective disorder, bipolar type (principal); I10 Essential (primary) hypertension; J44.9 Chronic obstructive pulmonary disease, unspecified; F17.210 Nicotine dependence, cigarettes, uncomplicated; E11.9 Type 2 diabetes mellitus without complications; G40.409 Other generalized epilepsy and epileptic syndromes, not intractable, without status epilepticus; F10.10 Alcohol abuse, uncomplicated; Y90.9 Presence of alcohol in blood, level not specified; D64.9 Anemia, unspecified; Z71.41 Alcohol abuse counseling and surveillance of alcoholic; Z71.51 Drug abuse counseling and surveillance of drug abuser; Z91.14 Patient's other noncompliance with medication regimen; Z81.8 Family history of other mental and behavioral disorders
CPT/HCPCS: 83036; 84443

== ENCOUNTER 2024-10-08 16:14 | Inpatient (IN) | payer MEDICARE, MEDICAID ==
[~2024-10-08] VITALS: Ht 167.6 cm; Wt 75.3 kg
[~2024-10-08 16:14] MED LIST changes: -ATOM25 PO; +ATOM25CA8 PO; -NALT50TA PO; +NALT50TA33 PO; +NALT50TA6 PO; +TRIH5TAB3 PO
[2024-10-09 08:46] VITALS: BP 136/78; PULSE 62; RESP 18; TEMP 97.1; O2SAT 96
[2024-10-09] MEDS ORDERED: TUBERCULIN, PURIFIED PROTEIN DERIVATIVE 5 TU/0.1 ML SYRINGE ID ONE (09:30)
[2024-10-09] MEDS ORDERED: MAGNESIUM HYDROXIDE SUSPENSION 30 ML UDCUP PO PRN (09:30)
[2024-10-09] MEDS ORDERED: PROMETHAZINE HCL 25 MG TABLET PO PRN (09:30)
[2024-10-09] MEDS ORDERED: MAG HYDROX/ALUMINUM HYD/SIMETH ES 30 ML SUSPENSION UDCUP PO PRN (09:30)
[2024-10-09] MEDS ORDERED: LOPERAMIDE HCL 2 MG CAPSULE PO PRN (09:30)
[2024-10-09] MEDS ORDERED: GuaiFENesin/D-METHORPHAN [SUGAR-FREE] 200-20MG/10 ML SYRUP UDCUP PO PRN (09:30)
[2024-10-09] MEDS: THIAMINE 100 MG TABLET PO SCH (16:20)
[2024-10-09] MEDS: PALIPERIDONE PALMITATE 234 MG/1.5 ML SYRINGE IM ONE (16:32)
[2024-10-09] MEDS ORDERED: INFLUENZA VIRUS VACCINE TVS (6MO+) 2024-25/PF 45 MCG/0.5 ML SYRINGE IM. ONE (18:30)
[2024-10-09] MEDS ORDERED: PNEUMOCOCCAL VACCINE POLYVALENT 0.5 ML SYRINGE [PPSV23] IM. ONE (18:30)
[2024-10-09 20:00] VITALS: BP 110/60; PULSE 62; RESP 16; TEMP 98.2; O2SAT 95
[2024-10-09] MEDS: OLANZapine 5 MG RAPDIS TABLET PO SCH (21:20)
[2024-10-09] MEDS: ZOLPIDEM TARTRATE 10 MG TABLET PO PRN (21:20)
[2024-10-09] MEDS: DIVALPROEX SODIUM 500 MG ER TABLET PO SCH (21:20)
[2024-10-09] MEDS: LORazepam 2 MG TABLET PO PRN (21:20)
[2024-10-10] MEDS: ATOMOXETINE HCL 25 MG CAPSULE PO SCH (08:39)
[2024-10-10] MEDS: FOLIC ACID 1 MG TABLET PO SCH (08:39)
[2024-10-10] MEDS: MULTIVITAMINS WITH MINERALS, THERAPEUTIC TABLET PO SCH (08:39)
[2024-10-10 08:40] VITALS: BP 102/70; PULSE 88; RESP 16; TEMP 98; O2SAT 100
[2024-10-10] MEDS: OLANZapine 5 MG RAPDIS TABLET PO PRN (08:40)
[2024-10-10 09:13] LABS: HEMOGLOBIN A1C 5.2 % (3.8-5.6)
[2024-10-10 09:28] LABS: CHOL/HDL RATIO 2.3 (4.2-7.3); FREE T4 (FREE THYROXINE) 1.3 ng/dL (0.76-1.46); THYROID STIMULATING HORMONE 0.91 uIU/mL (0.36-3.74)
[2024-10-10] MEDS: BusPIRone HCL 10 MG TABLET PO SCH (16:55)
[2024-10-10] MEDS: HydrOXYzine PAMOATE 50 MG CAPSULE PO PRN (16:55)
[2024-10-10 20:29] VITALS: BP 110/61; PULSE 94; RESP 17; TEMP 97.5; O2SAT 100
[2024-10-11 08:30] VITALS: BP 133/100; PULSE 89; RESP 16; TEMP 98; O2SAT 100
[2024-10-11] MEDS ORDERED: NICOTINE POLACRILEX 2 MG LOZENGE PO PRN (12:15)
[2024-10-11] MEDS: NICOTINE POLACRILEX 4 MG LOZENGE PO PRN (13:53)
[2024-10-11] MEDS: BusPIRone HCL 5 MG TABLET PO SCH (16:14)
[2024-10-11 21:55] VITALS: BP 127/78; PULSE 86; RESP 17; TEMP 97.6; O2SAT 98
[2024-10-12 08:16] VITALS: BP 112/82; PULSE 88; RESP 17; TEMP 97.6; O2SAT 100
[2024-10-12 22:05] VITALS: BP 117/74; PULSE 84; RESP 18; TEMP 97.6; O2SAT 99
[2024-10-13] MEDS: BusPIRone HCL 10 MG TABLET PO SCH (08:03)
[2024-10-13] MEDS: PALIPERIDONE PALMITATE 156 MG/ML SYRINGE IM ONE (09:59)
[2024-10-13 10:08] VITALS: BP 119/65; PULSE 88; RESP 17; TEMP 97.3; O2SAT 98
[2024-10-13 20:00] VITALS: BP_SYST 105; BP_SYST 155; BP_DIAS 53; BP_DIAS 88; PULSE 77; RESP 16; RESP 17; TEMP 97.2; TEMP 98.4; O2SAT 97; O2SAT 98
[2024-10-14 08:39] VITALS: BP 121/72; PULSE 75; RESP 18; TEMP 98.3; O2SAT 98
[2024-10-14 20:00] VITALS: BP 110/59; PULSE 80; RESP 18; TEMP 97.2; O2SAT 98
[2024-10-15 08:22] VITALS: BP 147/77; PULSE 89; RESP 17; TEMP 97.3; O2SAT 96
[2024-10-15] MEDS: BusPIRone HCL 15 MG TABLET PO SCH (16:50)
[2024-10-15 20:05] VITALS: BP 117/60; PULSE 76; RESP 18; TEMP 97.8; O2SAT 99
[2024-10-15] MEDS: OLANZapine 10 MG RAPDIS TABLET PO SCH (20:30)
[2024-10-16 08:38] VITALS: BP 133/70; PULSE 85; RESP 19; TEMP 98.2; O2SAT 99
[2024-10-16] MEDS: ATOMOXETINE HCL 40 MG CAPSULE PO SCH (08:56)
[2024-10-16 09:34] LABS: APPEARANCE,URINE CLEAR (CLEAR); BILIRUBIN,URINE NEGATIVE (NEGATIVE); COLOR,URINE YELLOW (YELLOW); GLUCOSE, URINE (UA) NEGATIVE (NEGATIVE); KETONES,URINE TRACE mg/dL (NEGATIVE); LEUKOCYTE ESTERASE ,URINE NEGATIVE (NEGATIVE); NITRATE,URINE NEGATIVE (NEGATIVE); OCCULT BLOOD,URINE NEGATIVE (NEGATIVE); PROTEIN,URINE NEGATIVE (NEGATIVE); UROBILINOGEN,URINE <=1.0 mg/dL (<=1.0)
[2024-10-16 09:47] LABS: ALCOHOL, URINE DRUG SCREEN NEGATIVE (NEGATIVE); AMPHET/METH SCREEN,URINE NEGATIVE (NEGATIVE); BARBITURATE SCREEN, URINE NEGATIVE (NEGATIVE); BENZODIAZEPINES SCREEN,URINE NEGATIVE (NEGATIVE); CANNABINOID SCREEN,URINE NEGATIVE (NEGATIVE); COCAINE SCREEN,URINE NEGATIVE (NEGATIVE); METHADONE SCREEN, URINE NEGATIVE (NEGATIVE); OPIATE SCREEN,URINE NEGATIVE (NEGATIVE); PHENCYCLIDINE SCREEN,URINE NEGATIVE (NEGATIVE)
[2024-10-16 14:43] VITALS: RESP 19; O2SAT 98
[2024-10-16] MEDS: ACETAMINOPHEN 325 MG TABLET PO PRN (14:43)
[2024-10-16 20:12] VITALS: BP 121/63; PULSE 75; RESP 18; TEMP 98.2; O2SAT 98
[2024-10-17 08:10] VITALS: BP 127/68; PULSE 106; RESP 17; TEMP 98.7; O2SAT 95
[2024-10-17 08:16] VITALS: RESP 18; O2SAT 96
[2024-10-17] MEDS: ATOMOXETINE HCL 60 MG CAPSULE PO SCH (09:06)
[2024-10-17 13:14] VITALS: RESP 18; O2SAT 99
[2024-10-17 14:44] VITALS: RESP 17
[2024-10-17 20:39] VITALS: BP 107/63; PULSE 86; RESP 18; TEMP 97.8; O2SAT 97
[2024-10-18 08:23] VITALS: BP 125/69; PULSE 84; RESP 18; TEMP 97.5; O2SAT 100
[2024-10-18] MEDS: ATOMOXETINE HCL 40 MG CAPSULE PO SCH (08:39)
[2024-10-18 20:17] VITALS: BP 122/72; PULSE 95; RESP 18; TEMP 98; O2SAT 97
[2024-10-19 08:07] VITALS: BP 137/77; PULSE 82; RESP 19; TEMP 98.3; O2SAT 100
[2024-10-19 21:48] VITALS: BP 118/78; PULSE 79; RESP 18; TEMP 98.4; O2SAT 98
[2024-10-20 08:14] VITALS: BP 131/79; PULSE 74; RESP 18; TEMP 98; O2SAT 98
[2024-10-20] MEDS: ATOMOXETINE HCL 25 MG CAPSULE PO SCH (09:19)
[2024-10-20 20:39] VITALS: BP 141/72; PULSE 81; RESP 18; TEMP 97.7; O2SAT 99
[2024-10-21 03:54] VITALS: BP 111/60; PULSE 74; RESP 18; TEMP 98; O2SAT 98
[2024-10-21 08:30] VITALS: BP 121/70; PULSE 81; RESP 18; TEMP 97.6; O2SAT 97
[2024-10-21 20:36] VITALS: BP 132/71; PULSE 85; RESP 18; TEMP 98.6; O2SAT 98
[2024-10-22 08:33] VITALS: BP 123/71; PULSE 70; RESP 19; TEMP 98.3; O2SAT 99
[2024-10-22 21:25] VITALS: BP 123/71; PULSE 70; RESP 18; TEMP 98.3; O2SAT 99
[2024-10-23 08:19] VITALS: BP 132/98; PULSE 77; RESP 18; TEMP 98; O2SAT 97
[2024-10-23 10:54] VITALS: RESP 17
[2024-10-23 11:54] VITALS: RESP 17
[2024-10-23 20:08] VITALS: BP 126/73; PULSE 85; RESP 19; TEMP 98.1; O2SAT 99
[2024-10-24 02:35] VITALS: BP 121/79; PULSE 89; RESP 18; TEMP 98; O2SAT 98
[2024-10-24 04:14] VITALS: BP 125/75; PULSE 85; RESP 18; TEMP 98.1; O2SAT 98
[2024-10-24 08:00] VITALS: BP 126/72; PULSE 82; RESP 17; TEMP 97.7; O2SAT 100
[2024-10-24 20:02] VITALS: BP 122/79; PULSE 83; RESP 18; TEMP 97.7; O2SAT 99
[2024-10-25 08:31] VITALS: BP 122/96; PULSE 85; RESP 18; TEMP 99.3; O2SAT 100
[2024-10-25] MEDS ORDERED: BUSP15 PO (17:23)
[2024-10-25] MEDS ORDERED: NALT50TA6 PO (17:23)
[2024-10-25] MEDS ORDERED: OLAN10TA26 PO (17:23)
[2024-10-25] MEDS ORDERED: MELA5TAB40 PO (17:23)
[2024-10-25 20:08] VITALS: BP 111/75; PULSE 80; RESP 18; TEMP 97.9; O2SAT 100
[2024-10-25] MEDS ORDERED: DIVA-153 PO (21:26)
[2024-10-26 08:07] VITALS: BP 118/73; PULSE 70; RESP 16; TEMP 98.2; O2SAT 100
== END 2024-10-26 08:20 | disposition home or self-care (01) | DRG 885 ==
LOC: B3A 10-09 04:58 → B2X 10-13 19:08
PROVIDERS: ADMIT Psychiatry & Neurology Psychiatry; ATTEND Psychiatry & Neurology Psychiatry
PROC: GZHZZZZ Group Psychotherapy (ICD-10-PCS; principal; 2024-10-09)
PROC: GZ51ZZZ Individual Psychotherapy, Behavioral (ICD-10-PCS; 2024-10-09)
PROC: GZ58ZZZ Individual Psychotherapy, Cognitive-Behavioral (ICD-10-PCS; 2024-10-09)
PROC: GZ56ZZZ Individual Psychotherapy, Supportive (ICD-10-PCS; 2024-10-10)
DX: F20.0 Paranoid schizophrenia (principal); Z59.02 Unsheltered homelessness; F17.200 Nicotine dependence, unspecified, uncomplicated; J44.9 Chronic obstructive pulmonary disease, unspecified; I10 Essential (primary) hypertension; G40.409 Other generalized epilepsy and epileptic syndromes, not intractable, without status epilepticus; E11.9 Type 2 diabetes mellitus without complications; D64.9 Anemia, unspecified; F90.9 Attention-deficit hyperactivity disorder, unspecified type; G47.00 Insomnia, unspecified; Z91.199 Patient's noncompliance with other medical treatment and regimen due to unspecified reason; Z79.899 Other long term (current) drug therapy
CPT/HCPCS: 80061; 80164; 80307; 81003; 83036; 84439; 84443; 86592

== ENCOUNTER 2024-10-09 01:22 | Emergency (ER) | payer MEDICARE, MEDICAID ==
[~2024-10-09] VITALS: Ht 175.3 cm; Wt 73.2 kg
[2024-10-09 01:56] LABS: BASOPHILS % (AUTO) 0.5 % (0.0-2.0); EOSINOPHILS % (AUTO) 4.9 % (1.0-6.0); HEMATOCRIT 42.4 % (41-53); HEMOGLOBIN 13.5 g/dL (13.5-17.5); LYMPHOCYTES # (AUTO) 1.7 K/uL (1.0-4.8); LYMPHOCYTES % (AUTO) 35.9 % (22.0-44.0); MEAN CORPUSCULAR HEMOGLOBIN 27.1 pg (26.0-34.0); MEAN CORPUSCULAR HGB CONC 31.9 G/dL (31.0-37.0); MEAN CORPUSCULAR VOLUME 85 fL (80-100); MONOCYTES # (AUTO) 0.7 K/uL (0.1-1.0); MONOCYTES % (AUTO) 14.3 % (2.0-9.0); NEUTROPHILS # (AUTO) 2.1 K/uL (1.8-7.7); NEUTROPHILS % (AUTO) 44.4 % (40.0-70.0); PLATELET COUNT (AUTO) 269 K/uL (150-450); RED CELL DISTRIBUTION WIDTH 14.7 % (11.5-14.5); WHITE BLOOD COUNT (AUTO) 4.7 K/uL (4.5-11.0)
[2024-10-09 02:05] LABS: ANION GAP 8 mmol/L (8-16); CALCIUM, TOTAL 8.6 mg/dL (8.8-10.5); CARBON DIOXIDE 29 mmol/L (22-29); CHLORIDE 105 mmol/L (98-107); CREATININE 0.67 mg/dL (0.60-1.30); GLOMERULAR FILTR. RATE CALC > 60 mL/min (>60); GLUCOSE,RANDOM 93 mg/dL (70-110); POTASSIUM 4.1 mmol/L (3.5-5.1); SODIUM SERUM 142 mmol/L (136-145); UREA NITROGEN, BLOOD 13 mg/dL (7-18)
[2024-10-09 02:15] LABS: ALCOHOL, BLOOD (SERUM) < 3 mg/dL (0-10)
[2024-10-09 03:09] VITALS: TEMP 97.8
[2024-10-09 03:26] LABS: COVID AG,FIA SOURCE NASAL SWAB
[2024-10-09 03:30] LABS: PH,URINE DRUG SCREEN 5.5 (5.0-8.0)
[2024-10-09 03:39] LABS: ALCOHOL, URINE DRUG SCREEN NEGATIVE (NEGATIVE); AMPHET/METH SCREEN,URINE POSITIVE (NEGATIVE); BARBITURATE SCREEN, URINE NEGATIVE (NEGATIVE); BENZODIAZEPINES SCREEN,URINE NEGATIVE (NEGATIVE); CANNABINOID SCREEN,URINE POSITIVE (NEGATIVE); COCAINE SCREEN,URINE NEGATIVE (NEGATIVE); METHADONE SCREEN, URINE NEGATIVE (NEGATIVE); OPIATE SCREEN,URINE NEGATIVE (NEGATIVE); PHENCYCLIDINE SCREEN,URINE NEGATIVE (NEGATIVE)
[2024-10-09 03:46] LABS: SARS-COV2 (COVID) ANTIGEN,FIA Negative (Negative)
[2024-10-09 06:14] VITALS: BP 118/76; PULSE 71; RESP 17; O2SAT 97
== END 2024-10-09 07:28 ==
LOC: EMS 01:22 → EDUNIT# 01:22 → EMS 07:28
DX: F20.9 Schizophrenia, unspecified (principal); F90.9 Attention-deficit hyperactivity disorder, unspecified type; R44.0 Auditory hallucinations; F15.90 Other stimulant use, unspecified, uncomplicated; Z00.8 Encounter for other general examination; Z20.822 Contact with and (suspected) exposure to COVID-19
CPT/HCPCS: 99285; 87426; 80048; 85025; 36415; 80307; G0480